=== PATIENT | male | born 1940 | race Caucasian/White ===

== ENCOUNTER 2016-07-06 15:32 | Inpatient (IN) | payer MEDICARE ==
[2016-07-06] VITALS (7 sets, daily range): BP systolic 55–151; BP diastolic 34–74; PULSE 101–121; RESP 19–27; O2SAT 96–100
[~2016-07-06] VITALS: Ht 180.3 cm; Wt 164.1 kg
[~2016-07-06 15:32] MED LIST: CHOL100043 PO; CITA20TA11 PO; CYAN1TAB42 PO; CYCL10TA9 PO; FLUT15.88 NS; FURO40TA4 PO; GABA-502 PO; HYDR-3825 PO; INSLIS SUBQ; INSU100V7 SUBQ; IRON 65 MG PO; LEVO200T24 PO; OMEG-38 PO; OMEP20CA11 PO; OXYB5TAB10 PO; PRAZ5CAP3 PO; SIMV40TA5 PO; SITA100T12 PO; SUNI50CA PO
[2016-07-06] MEDS ORDERED: 0.9% Sodium Chloride 1,000 ML IV ONE (15:37)
[2016-07-06] MEDS ORDERED: Pantoprazole Inj 80 MG, Pharmacy To Mix 1 EA in 0.9% Sodium Chloride 80 ML IV ONE ×2 (15:40)
[2016-07-06] MEDS ORDERED: Pantoprazole 4 mg/mL 10 mL Inj IVPUSH ONE (15:40)
[2016-07-06] MEDS ORDERED: Octreotide Inj 500 MCG in 0.9% Sodium Chloride 100 ML IV ONE (15:40)
--- NOTE | 2016-07-06 15:43 | ED.REPORT ---
HPI-GI Bleed Date of Service Jul 06, 2016 ED Provider: Jayesh Fisher MD The patient is a 76 year old male with history of gastric cancer with previous GI bleed, diabetes mellitus type II, morbid obesity, hypertension, heart failure , chronic kidney disease stage II, and ileocolonic anastomosis secondary to colectomy, who was brought to the emergency department by EMS for hematemesis that began suddenly prior to arrival. The patient is vomiting alberto red blood. He also has some epigastric abdominal pain and nausea. Medics report the patient was hypotensive with a blood pressure in the 90's systolic and tachycardic with a heart rate in the 130's. He was given a small amount of IVF en route. He had a similar episode last year. He was given 2 units of blood last week. He is not on any blood thinners. Nursing Notes Stated Complaint: ABDOMINAL PAIN Nursing Notes Reviewed: Yes Allergies: Coded Allergies: No Known Allergies (Verified Allergy, Unknown, 11/11/15) Scheduled Cholecalciferol (Vitamin D3) (Vitamin D3) 2,000 Unit Tablet 2,000 UNIT PO QAM Citalopram (Citalopram) 20 Mg Tablet 40 MG PO QAM Cyanocobalamin/Folic Acid (Vitamin E49-Ctzvk Acid Tablet) 1 Each Tablet 1 EACH PO QAM Cyclobenzaprine (Cyclobenzaprine) 10 Mg Tablet 10 MG PO BID Ferrous Sulfate (Ferrous Sulfate) 325 Mg Tablet.dr 325 MG PO BIDWM Fluticasone Propionate (Fluticasone Propionate) 50 Mcg/Actuation [place].susp 2 SPRAYS NS QAM Furosemide (Furosemide) 40 Mg Tablet 80 MG PO BIDWM Gabapentin (Gabapentin) 300 Mg Capsule 300 MG PO TID Insulin Glargine (Lantus U100 Insulin Vial) 100 Unit/Ml Vial 50 UNIT SUBQ HS Levothyroxine (Levoxyl) 200 Mcg Tablet 200 MCG PO QAM [place]-3/Dha/Epa/Fish Oil (Fish Oil 1,000 mg Softgel) 1 Each Capsule 1 EACH PO QAM Omeprazole (Omeprazole) 20 Mg Capsule.dr 20 MG PO BIDWM Oxybutynin Chloride (Oxybutynin Chloride) 5 Mg Tablet 5 MG PO BID Prazosin (Prazosin) 5 Mg Capsule 5 MG PO BID Simvastatin (Simvastatin) 40 Mg Tablet 40 MG PO HS Sitagliptin Phos (Januvia) 100 Mg Tablet 100 MG PO QAM Sunitinib Malate (Sutent) 50 Mg Capsule 50 MG PO DAILY HOLD (07/02/16) Scheduled PRN Hydrocodone-Acetaminophen 7.5-325 mg (Hydrocodone-Acetaminophen 7.5-325 mg) 1 Each Tablet 1 TABLET PO BID PRN PRN For Pain Insulin Human Lispro (HumaLOG U100 Insulin Vial) 100 Unit/Ml Unit 1-12 UNIT SUBQ TIDWM PRN PRN Hyperglycemia Check blood sugars before meals and at bedtime. Use correction factor only before meals. Blood Sugar Lispro Correction: <151, 0 units; 151-175, 1 unit; 176-200, 2 units; 201-225, 3 units; 226-250, 4 units; 251-275, 5 units; 276-300 , 6 units; 301-325, 7 units; 326-350, 8 units; 351-375, 9 units; 376-400, 10 units; >400, 12 units. General Time Seen by Provider: 15:40 Chief Complaint Chief Complaint: Vomiting bright red blood Bleeding Severity: Severe, Cups Hx Obtained From: Patient, EMS Arrived By: Ambulance Onset Occurred: 1 - 4 hours ago Symptom Duration: Since onset Progression Since Onset: Constant, Gradually worsening Location: : Epigastric Quality: Painful Severity: Current: Moderate Severity: Maximum: Moderate Recent Healthcare: No recent hospitalization Similar Sx Previous: Yes Past Medical History Past Medical History Notes: Oncologist: Dr. Gerber Past Medical History 1. Type 2 diabetes. Not requiring insulin at this time. No A1c available at this time. 2. Morbid obesity. 3. Obstructive sleep apnea, not using CPAP. 4. Hypertension. 5. History ileocolonic anastomosis secondary to colectomy in 2005 due to colon cancer. 6. CKD stage III 7. Diastolic heart failure 8. Previous GI bleed secondary to ulcerated mass lesion in the stomach and erosive esophagitis 9. Gastric cancer, GIST tumor Past Surgical History 1. Back surgery in 1990. 2. History ileocolonic anastomosis secondary to colectomy in 2005 due to colon cancer. Family History noncontributory Smoking History Never Smoker Social History Patient lives in [facility]. He used to work in [employer]. He is retired. He has no history of smoking or alcoholism. They have one grownup son. Alcohol Use: Denies alcohol use Drug Use: Denies drug use Other Social History: Good social support, , Local resident Occupation Retired price checker Ambulatory Status Independent Review of Systems GI: Reports: Abdominal pain, Hematemesis, Nausea, Vomiting Complete sys rev & neg: except as marked. Physical Exam Initial Vital Signs Vital Signs (First) Date Time Temp Pulse Resp B/P Pulse Ox O2 Delivery O2 Flow Rate FiO2 07/06/16 15:48 35.8 120 22 86/73 96 Room Air Initial VS: Reviewed Head / Eyes: Atraumatic, Normocephalic, PERRL ENT: Mucous membranes moist, Conjunctiva normal, No scleral icterus Neck: Supple, Non-tender, Full range of motion Lymphatic: No lymphadenopathy Extremities: Vascular intact, Neuro intact, No swelling, No tenderness Skin: Warm, Dry, No cyanosis Neurologic: Alert, Oriented, Nonfocal Psychiatric: Mood/affect normal, Behavior normal, Normal thought content General/Constitutional: Awake, Alert Distress / Hydration: Positive: Distress moderate Appearance / Presentation: Positive: Pale The patient is pale in appearance, sitting upright holding an emesis basin, vomiting bright red blood. The emesis basin conatains about 500-1000 mL of pure blood. Respiratory / Chest: Atraumatic, Breath sounds NL, Breath sounds = bilat, No respiratory distress, No rales, No rhonchi, No wheezing Cardiovascular: Regular rhythm, Heart sounds NL Heart Rate / Rhythm: Positive: Tachycardia Thready distal pulses Abdomen: Soft, No guarding, No rebound, BS normoactive, No distention, No hernia, No palpable mass, No pulsatile mass Tenderness/Guarding/Rebound: Positive: Tender epigastric Interpretation & Diagnostics Lab Results Interpretation Result Diagram: 07/06/16 1920 07/06/16 1540 Test 07/06/16 15:40 07/06/16 15:45 07/06/16 16:30 White Blood Count 8.1th/mm3 (3.8-10.1) Red Blood Count 2.86mil/mm3 (4.40-5.80) Mean Corpuscular Volume 100.0fL (81-100) Mean Corpuscular Hemoglobin 30.4pg (27.0-35.0) Mean Corpuscular Hemoglobin Concent 30.4% (32.0-37.0) Red Cell Distribution Width 16.5% (12.3-15.4) Platelet Count 345bil/L (150-400) Neutrophils (%) (Auto) 48.9% (40-74) Lymphocytes (%) (Auto) 30.0% (14-46) Monocytes (%) (Auto) 13.2% (4-12) Eosinophils (%) (Auto) 7.3% (0-5) Basophils (%) (Auto) 0.4% (0-3) Sodium Level 139mEq/L (134-144) Potassium Level 3.3mEq/L (3.5-5.2) Chloride Level 98mEq/L (97-108) Carbon Dioxide Level 27mmol/L (18-29) Blood Urea Nitrogen 19mg/dL (8-27) Creatinine 1.52mg/dL (0.76-1.27) Estimat Glomerular Filtration Rate 48mL/min (>59) Glucose Level 179mg/dL (60-99) Total Bilirubin 0.2mg/dL (0.0-1.2) Aspartate Amino Transf (AST/SGOT) 7U/L (0-50) Alanine Aminotransferase (ALT/SGPT) 5U/L (0-44) Alkaline Phosphatase 66U/L (25-160) Troponin T 0.036ug/L (0.0-0.011) Total Protein 6.1g/dL (6.4-8.4) Albumin 3.1g/dL (3.4-5.0) Hemoglobin 7.9g/dL (13.8-17.2) Hold [place] Top Tube Received (Received) Hold Purple Top Tube Received (Received) Hold Blue Top Tube Received (Received) ECG Interpretation ECG Interpretation: Atrial fibrillation with a rate of [address] segment changes No acute T wave abnormalities When compared to prior EKG taken on 07/08/2015 his heart rate has no increased. Time: 16:38 Interpreted by: ED physician X-Ray Chest Interpretation Chest Xray Interpretation: IMPRESSION: Moderate to large left-sided pleural effusion and associated atelectasis. Superimposed infection cannot be excluded. Dictated by: Jaquan Buchanan M.D. on 07/06/2016 at 15:07 Interpretation / Wet Read by: Interpret - Radiologist Re-Eval/Medical Decision Med Decision/Clinical Course The patient is a 76 year old male with history of gastric cancer with previous GI bleed, diabetes mellitus type II, morbid obesity, hypertension, heart failure , chronic kidney disease stage II, and ileocolonic anastomosis secondary to colectomy, who was brought to the emergency department by EMS for hematemesis that began suddenly prior to arrival. The patient is vomiting alberto red blood. He also has some epigastric abdominal pain and nausea. Medics report the patient was hypotensive with a blood pressure in the 90's systolic and tachycardic with a heart rate in the 130's. He was given a small amount of IVF en route. He had a similar episode last year. He was given 2 units of blood last week. He is not on any blood thinners. Upon arrival the patient is grasping an emesis basin. He is actively vomiting alberto blood and his emesis basin contains over 500 mL of alberto blood. He is pale in appearance, tachycardic in the 130s with a blood pressure in the 70s over 40s. He has 1 large bore IV staff placed. A second large-bore IV was obtained in the left antecubital fossa. I immediately initiated resuscitation with O- blood by pressure bag into both IVs. Additionally he was given warmed IV fluids. His blood pressure improved into the 80s to 90s systolic with a map in the low 60s. I continued resuscitative measures though he continued to vomit bright red blood despite receiving Zofran and Reglan. I immediately consulted GI and requested they evaluate the patient at the bedside. Dr. Archibald came to the bedside and evaluated the patient. Requested he be seen as well by general surgery for evaluation of possible operative intervention. Patient was seen and evaluated by Dr. Prather. Due to his multiple comorbidities and extensive tumor involvement he was not felt to be an operative candidate. Additionally we consulted Dr. Toledo who agreed to attempt to endovascular management of bleeding should we be unable to achieve this endoscopically. Here the emergency room the patient continued to have hematemesis and we administered a total of 6 units of blood and continued to administer blood products. Due to concern for possible coagulopathy I initiated the platelet and FFP transfusion as well. Laboratory studies were notable as below: Hct 28.6 no prior available, K 3.3, BUN 19, creatinine 1.5, trop .036, INR 1.12 EKG was obtained and interpreted by myself as documented above. Chest x-ray notable as above. Patient continued to be critically ill with ongoing hematemesis. I estimate that he had a total of approximately 1.5 L of alberto hematemesis between his emesis basis when he arrived and his ongoing hematemesis here. I was able to stabilize his blood pressure into the 90s over 40s and we continued ongoing aggressive replacement of blood products. He is taken to the endoscopy suite in critical condition for ongoing management from Dr. Archibald as well as Dr. Toledo. The patient's was updated as to the critical nature of his condition. He remained full code at this time. Source of Hx: Old records, EMS Re-Evaluation/Progress #1: Time of Eval: 15:55 Re-Evaluation/Progress Note: The patient's is now at bedside. Re-Evaluation/Progress #2: Time of Eval: 16:01 Re-Evaluation/Progress Note: Dr. Justice, rn renal is at bedside examining the patient. Re-Evaluation/Progress #3: Time of Eval: 16:17 Re-Evaluation/Progress Note: Rechecked the patient. Discussed plan for surgery with the patient and his . Will continue to update them. Re-Evaluation/Progress #4: Time of Eval: 16:54 Re-Evaluation/Progress Note: The patient is still actively vomiting bright red emesis. Re-Evaluation/Progress #5: Time of Eval: 16:59 Re-Evaluation/Progress Note: The patient feels like it is getting harder for him to breath. Re-Evaluation/Progress #6: Time of Eval: 17:07 Re-Evaluation/Progress Note: The anesthesiologist is at bedside. Discussed the plan with the patient. Consultation #1: Referral / Consult Name: Hansel Justice MD Call Returned at: 15:51 Rn Immunology: Will see patient, Agrees with eval, Agrees with plan Note: Spoke with the on-call rn renal. He would like the general surgeon involved. Consultation #2: Referral / Consult Name: Marcus Prather MD Consulted With: Surgeon Call Returned at: 16:09 Rn Immunology: Agrees with eval, Agrees with plan Note: The patient is not a surgical candidate but he talked to Dr. Lyn who will assist if needed. Consultation #3: Consulted With: Anesthesia Requested Call at: 16:18 Rn Immunology: Will see patient, Agrees with eval, Agrees with plan Consultation #4: Referral / Consult Name: Jazmyn Lyn MD Requested Call at: 16:18 Note: Dr. Prather spoke with the on-call radiologist. Dr. Lyn will assist if needed. Consultation #5: Referral / Consult Name: Hansel Justice MD Call Returned at: 16:50 Rn Immunology: Will see patient, Agrees with eval, Agrees with plan, Accepts admit Note: Spoke with Dr. Justice about the patient again. He is agreeable with plan. Consultation #6: Call Returned at: 17:00 Note: The community artist spoke with the OR team who will be coming down soon for the patient. Everything is a go. Dr. Justice will be taking the patient shortly. Consultation #7: Referral / Consult Name: Jordan Gallegos MD Consulted With: Hospitalist Call Returned at: 18:14 Rn Immunology: Will see patient, Agrees with eval, Agrees with plan, Accepts admit Counseled Regarding: Diagnosis, Lab results, Need for admission Discharge & Departure Impression: Primary Impression: GI bleeding GI bleed type/associated pathology: unspecified gastrointestinal hemorrhage type Qualified Code: K92.2 - Gastrointestinal hemorrhage, unspecified Additional Impressions: Gastric cancer Malignant neoplasm of stomach location: unspecified location Qualified Code: C16.9 - Malignant neoplasm of stomach, unspecified Hemorrhagic shock Hematemesis Nausea presence: unspecified Qualified Code: K92.0 - Hematemesis Blood loss anemia Tachycardia Hypotension Hypotension type: unspecified hypotension type Qualified Code: I95.9 - Hypotension, unspecified Disposition: ADMITTED TO HOSPITAL Discharge Condition All VS Reviewed: Yes Condition: Stable Referrals: Ke Mayen DO (PCP) Crit Care Except Billable Proc Time Spent: 105-134 minutes Services Performed: Patient management by me, Time spent at bedside, Reviewing test results, Reviewing imaging, Discussing patient care, Documentation in record Scribe Attestation Portions of this note were transcribed by Christie Castrejon. I, Dr. Fisher personally performed the history, physical exam and medical decision-making; I reviewed and confirmed the accuracy of the information in the transcribed note. Signed by: Brandy Osman, 07/06/2016 at 2009. copies to: Ke Mayen DO [place], Beck O MD Jul 06, 2016 15:43 Christie Castrejon Jul 06, 2016 15:52
[2016-07-06] MEDS ORDERED: fentaNYL-PF 50 mCg/mL 2 mL Inj IVPUSH ONE (15:45)
[2016-07-06] MEDS ORDERED: Ondansetron 2 mg/mL 2 mL Inj IVPUSH ONE (15:45)
[2016-07-06 15:46] LABS: BASOPHILS % (AUTO) 0.4 % (0-3); EOSINOPHILS % (AUTO) 7.3 % (0-5); MONOCYTES % (AUTO) 13.2 % (4-12); Mean Corpuscular Hemoglobin 30.4 pg (27.0-35.0); NEUTROPHILS % (AUTO) 48.9 % (40-74); Platelet Count 345 bil/L (150-400)
[2016-07-06 16:12] LABS: Magnesium 1.9 mg/dL (1.6-2.6)
--- NOTE | 2016-07-06 16:17 | DRSVH ---
PROCEDURE: X-RAY CHEST ONE VIEW, PORTABLE ([id number]) INDICATIONS: SHORTNESS OF BREATH TECHNIQUE: One view of the chest was acquired. COMPARISON: [facility], CR, XR CHEST 1VW (PORTABLE), 07/08/2015, 21:05. FINDINGS: Surgical changes and devices: None. Lungs and pleura: There is a large left basilar opacity that obscures the diaphragm and left heart amna rder, which is new since the prior study from 07/08/15. Aeration of the right lung is within normal l imits and unchanged. There is no pneumothorax. Mediastinum: Mediastinal contours appear normal. Heart size is obscured by the left basilar opacity . Bones and chest wall: No suspicious bony lesions. Overlying soft tissues appear unremarkable. IMPRESSION: Moderate to large left-sided pleural effusion and associated atelectasis. Superimposed i nfection cannot be excluded. Dictated by: Jaquan Buchanan M.D. on 07/06/2016 at 15:07 Approved by: Jaquan Buchanan M.D. on 07/06/2016 at 15:16
[2016-07-06 16:21] LABS: TROPONIN T 0.036 ug/L (0.0-0.011)
[2016-07-06] MEDS ORDERED: MetoCLOpramide 5 mg/mL 2 mL Inj IVPUSH PRN (17:00)
[2016-07-06] MEDS ORDERED: CHOL200025 PO (17:30)
[2016-07-06] MEDS ORDERED: FERR325T6 PO (17:38)
--- NOTE | 2016-07-06 17:44 | PCM.CONSUR ---
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 The patient started vomiting alberto red blood today and Medics report the patient was hypotensive with a blood pressure in the 90's systolic and tachycardic with a heart rate in the 130's. He was given a small amount of IVF en route. He had a similar episode last year. He was given 2 units or blood last week. He is not on any blood thinners. Previously, regarding his GIST he would have required a major operation including gastrectomy and lower distal esophagectomy and the patient was not felt to be medically able to tolerate that operation after two separate surgical consultations. He was treated with Gleevec and then had disease progression and was treated with palliative radiation to the stomach in the summer of 2015. Gleevec was given for about one and half years through October 2015. Managed initially with Gleevec, then, due to progression of disease, he was switched to Sutent. Additionally he has had a liver lesion that had increased to 2.2 from previously 1.6 cm, then further increased in mid March to 2.9 cm without any new lesions. Therefore, at his visit on April 16, 2016, his dose of Sutent was increased to 50 mg on a four weeks on and two weeks off cycle. He was supposed to start his next cycle of Sutent on June 30 but has been delayed due to declining hemoglobin over the last month, which was concerning for a GI bleed. His hemoglobin has usually been running around 11.5-12, and most recently dropped to 9.3 on June 11 and 7.9 on June 25, 2016. Other pmh of several comorbidities, including morbid obesity, diabetes, hypertension, heart failure, chronic renal insufficiency, and ileocolonic anastomosis secondary to colectomy, and other cardiovascular issues. The patient reports epigastric pain, vomiting bright red blood, dizziness. Denies chest pain, shortness of breath, syncope, diarrhea, constipation. Patient states he was everything done regarding CPR, Intubation, blood transfusions, and other invasive measures including EGD and surgery. Reason for Consultation Vomiting bright red blood. Allergy Allergies: Coded Allergies: No Known Allergies (Verified Allergy, Unknown, 11/11/15) Medications Hypertension Medication: Yes Home Meds Incl Beta Blockers: No Cholecalciferol (Vitamin D3) (Vitamin D3) 2,000 Unit Tablet 2,000 UNIT PO QAM ( Reported) Last Taken: 2,000 UNTIS on 07/06/16899 Citalopram (Citalopram) 20 Mg Tablet 40 MG PO QAM (Reported) Last Taken: 40 MG on 07/06/16899 Cyanocobalamin/Folic Acid (Vitamin B12- Folic Acid Tablet) 1 Each Tablet 1 EACH PO QAM (Reported) Last Taken: 1 TABLET on 07/06/16899 Cyclobenzaprine (Cyclobenzaprine) 10 Mg Tablet 10 MG PO BID (Reported) Last Taken: 10 MG on 07/06/16899 Ferrous Sulfate (Ferrous Sulfate) 325 Mg Tablet.dr 325 MG PO BIDWM (Reported) Last Taken: 325 MG on 07/06/16899 Fluticasone Propionate (Fluticasone Propionate) 50 Mcg/Actuation [place].susp 2 SPRAYS NS QAM (Reported) Last Taken: 1 SPRAY on 07/06/16899 Furosemide (Furosemide) 40 Mg Tablet 80 MG PO BIDWM (Reported) Last Taken: 80 MG on 07/06/16899 Gabapentin (Gabapentin) 300 Mg Capsule 300 MG PO TID (Reported) Last Taken: 300 MG on 07/06/16899 Hydrocodone-Acetaminophen 7.5-325 mg ( Hydrocodone-Acetaminophen 7.5-325 mg) 1 Each Tablet 1 TABLET PO BID PRN PRN For Pain (Reported) Last Taken: 1 TABLET on Unknown Date & Time Insulin Glargine (Lantus U100 Insulin Vial) 100 Unit/Ml Vial 50 UNIT SUBQ HS (Reported) Last Taken: 50 UNITS on 07/05/16 2100 Insulin Human Lispro (HumaLOG U100 Insulin Vial) 100 Unit/Ml Unit 1-12 UNIT SUBQ TIDWM PRN PRN Hyperglycemia ( Reported) Check blood sugars before meals and at bedtime. Use correction factor only before meals. Blood Sugar Lispro Correction: <151, 0 units; 151-175, 1 unit; 176-200, 2 units; 201-225, 3 units; 226-250, 4 units; 251-275, 5 units; 276-300 , 6 units; 301-325, 7 units; 326-350, 8 units; 351-375, 9 units; 376-400, 10 units; >400, 12 units. Last Taken: Unknown Dose on 07/06/16 Levothyroxine (Levoxyl) 200 Mcg Tablet 200 MCG PO QAM (Reported) Last Taken: 200 MCG on 07/06/16 07 [place]-3/Dha/Epa/Fish Oil (Fish Oil 1, 000 mg Softgel) 1 Each Capsule 1 EACH PO QAM (Reported) Last Taken: 1,000 MG on 07/06/16 09 Omeprazole (Omeprazole) 20 Mg Capsule.dr 20 MG PO BIDWM (Reported) Last Taken: 20 MG on 07/06/16 07 Oxybutynin Chloride (Oxybutynin Chloride) 5 Mg Tablet 5 MG PO BID (Reported) Last Taken: 5 MG on 07/06/16 09 Prazosin (Prazosin) 5 Mg Capsule 5 MG PO BID (Reported) Last Taken: 5 MG on 07/06/16 09 Simvastatin (Simvastatin) 40 Mg Tablet 40 MG PO HS (Reported) Last Taken: 40 MG on 07/05/16 2100 Sitagliptin Phos (Januvia) 100 Mg Tablet 100 MG PO QAM (Reported) Last Taken: 100 MG on 07/06/16 0900 Sunitinib Malate (Sutent) 50 Mg Capsule 50 MG PO DAILY (Reported) HOLD (07/02/16) Last Taken: 50 MG on 07/01/16 Discontinued Medications ([Iron 65 Mg]) 65 MG PO BID (Reported) HOLD (07/02/16) Cholecalciferol (Vitamin D3) (Vitamin D) 1,000 Unit Tablet 3,000 UNIT PO DAILY ( Reported) Past Surgical History Surgeries: Yes (hemicolectomy. ) Patient/Family Past Surgical: Positive for:: Blood Transfusions, Denies:: Anesthesia Reactions, Blood Transfuse Reaction, Malignant Hyperthermia Social History Hx Alcohol Use: No Hx Substance Use: No Hx Tobacco Use: No PMH HEENT History History of ENT Problems?: No HEENT History: Positive for:: Sinus Problem Denies:: Abnormal Airway Cataracts Difficult Intubation Dysphagia Hearing Problem Cardiovascular History History of Heart Problems?: Yes Cardiovascular History: Positive for:: Edema Hypertension Denies:: AICD Cardiac Surgery Chest Pain Congestive Heart Failure Heart Murmur Irregular Heartbeat Pacemaker Rheumatic Fever Thrombophlebitis Valvular Heart Disease Respiratory History of Respiratory Problem: Yes Respiratory History: Positive for:: Cough (productive) Dyspnea (with exertion ) Pneumonia (40 years ago) Denies:: Asthma COPD Chest Surgery Emphysema Hemoptysis Tuberculosis Neurological History Hx Neurologic Problems?: Yes Neurological History: Positive for:: Headaches Denies:: Alzheimer's Disease CVA Dementia Dizziness Parkinson's Disease Seizures Gastrointestinal History HX of GI Problems?: Yes Gastrointestinal History: Positive for:: Gastrointestinal Bleeding Heartburn Hiatal Hernia Rectal Bleeding Denies:: Cirrhosis Diverticulitis Gastroesphageal Reflux Hepatitis Genitourinary History Hx of Gu Problems?: Yes Genitourinary History: Positive for: Urinary Tract Infection Denies: HX of Hemodialysis Kidney Stones Female/Male History Reproductive History Male: Denies: Prostate Problems Scrotal Mass Musculoskeletal History Hx Musculoskeletal Problems?: Yes Musculoskeletal History: Positive for:: Back Injury (2 lamanectomy 30yrs ) Denies:: Joint Replacement Musculoskeletal Trauma Psycho Social History Hx of Psycho/Social Problems?: No Psycho Social History: Denies:: Anxiety Bipolar Disorder Hx Depression Suicide Attempt Other History Hx Any Other Health Problems?: Yes Other History: Positive for:: Cancer (gastric cancer of some sort ) Hospitalization (gi bleed, gastric cancer) Thyroid Disease Denies:: Endocrine Disease Diabetes: Yes Social History Hx Alcohol Use: NoHx Substance Use: NoHx Tobacco Use: No Smoking Status: Never Smoker Objective Exam Vital Signs & I/O Vital Sign- Last 8 Hours Date Time Temp Pulse Resp B/P Pulse Ox O2 Delivery O2 Flow Rate FiO2 07/06/16 16:08 35.6 101 25 73/45 96 Room Air 07/06/16 15:48 35.8 120 22 86/73 96 Room Air Lab & Micro Results Laboratory Tests Test 07/06/16 15:40 07/06/16 15:45 07/06/16 16:30 White Blood Count 8.1th/mm3 (3.8-10.1) Red Blood Count 2.86mil/mm3 (4.40-5.80) Hemoglobin 8.7g/dL (13.8-17.2) 7.9g/dL (13.8-17.2) Hematocrit 28.6% (41.0-50.0) 26.9% (41.0-50.0) Mean Corpuscular Volume 100.0fL (81-100) Mean Corpuscular Hemoglobin 30.4pg (27.0-35.0) Mean Corpuscular Hemoglobin Concent 30.4% (32.0-37.0) Red Cell Distribution Width 16.5% (12.3-15.4) Platelet Count 345bil/L (150-400) Neutrophils (%) (Auto) 48.9% (40-74) Lymphocytes (%) (Auto) 30.0% (14-46) Monocytes (%) (Auto) 13.2% (4-12) Eosinophils (%) (Auto) 7.3% (0-5) Basophils (%) (Auto) 0.4% (0-3) Prothrombin Time 10.7sec (8.1-12.5) Prothromb Time International Ratio 1.00ratio Sodium Level 139mEq/L (134-144) Potassium Level 3.3mEq/L (3.5-5.2) Chloride Level 98mEq/L (97-108) Carbon Dioxide Level 27mmol/L (18-29) Blood Urea Nitrogen 19mg/dL (8-27) Creatinine 1.52mg/dL (0.76-1.27) Estimat Glomerular Filtration Rate 48mL/min (>59) Glucose Level 179mg/dL (60-99) Calcium Level 9.0mg/dL (8.5-10.1) Magnesium Level 1.9mg/dL (1.6-2.6) Total Bilirubin 0.2mg/dL (0.0-1.2) Aspartate Amino Transf (AST/SGOT) 7U/L (0-50) Alanine Aminotransferase (ALT/SGPT) 5U/L (0-44) Alkaline Phosphatase 66U/L (25-160) Troponin T 0.036ug/L (0.0-0.011) Total Protein 6.1g/dL (6.4-8.4) Albumin 3.1g/dL (3.4-5.0) Hold Blue Top Tube Received (Received) Received (Received) Hold [place] Top Tube Received (Received) Hold Purple Top Tube Received (Received) Result Diagram: 07/06/16 1548 07/06/16 1540 Review of Systems: Constitutional: Negative, except as otherwise mentioned in the history above. Ophthalmologic: Negative, except as otherwise mentioned in the history above. Cardiovascular: Negative, except as otherwise mentioned in the history above. Respiratory: Negative, except as otherwise mentioned in the history above. Gastrointestinal: Negative, except as otherwise mentioned in the history above. Genitourinary: Negative, except as otherwise mentioned in the history above. Musculoskeletal: Negative, except as otherwise mentioned in the history above. Neurological: Negative, except as otherwise mentioned in the history above. Psychiatric: Negative, except as otherwise mentioned in the history above. Hematologic/Lymphatic: Negative, except as otherwise mentioned in the history above. Allergic/Immunologic: Negative, except as otherwise mentioned in the history above. Additional Information A comprehensive review of systems was conducted with the patient and found to be negative except as above in the History of Present Illness. H&P Surgical Exam Exam Additional Information General: Pt sitting in bed. Obese. Well-developed. Appropriately interactive, slow to respond and distracted. HEENT: Normocephalic, atraumatic. External ears without defect. Pupils equal, round, minimally responsive, not pinpoint or dilated. Oropharynx free of erythema with moist mucosa. Normal dentition. Cardiovascular: Mildly tachycardic rate with normal rhythm with no murmurs, rubs , or gallops appreciated Pulmonary: Clear to auscultation bilaterally with no crackles, wheezes, or rhonchi. Normal respiratory effort with no use of accessory muscles. Abdomen: Bowel tones present. Soft, tender to palpation in the epigastric area, nondistended. No hepatosplenomegaly or masses appreciated. Extremities: No clubbing, cyanosis, edema, or lymphadenopathy appreciated. Skin: Normal temperature, turgor, and texture; no rash, ulcers, or subcutaneous nodules appreciated. Neurological: Cranial nerves grossly intact. Normal muscle strength, tone, and bulk. Reflexes, coordination, and sensory function within normal limits. No known gait impairment. Psychiatric: Normal mood and affect. Alert and oriented to person, place, and time. Assessment & Plan Assessment Upper GI bleed, most likely 2nd to aggressive GIST with acute blood loss anemia. Plan: Upper GI bleed, most likely 2nd to aggressive GIST with acute blood loss anemia. Upper endoscopy showed large blood clot from mid esophageus to gastric pylorus with free flowing bright red blood under the blood clot. Dr. Justice could not visualize source of bleeding. Dr. Lyn with IR will attempt angiography embolization. Dr. Justice will plan to try EGD again if IR attempts are unsuccessful. Spoke with and she does not wish surgery at this time. She understands that surgery has not been and option in the past and does not wish to subject her to further surgeries. She has decided that if patient were to have a cardiac arrest due to blood loss and transfusions could not keep up with the rate of blood loss, that we should NOT attempt resuscitation. This is a change from the previous plan and that compressions, epi and shock would not help the underlying problem of blood loss. Continue supportive care with IV fluids and Blood transfusions. Place NG tube. ICU placement. Surgery will remain available and reassess IF EGD and IR are unsuccessful at controlling upper GI bleed. Medicine team to follow. Dr. Gerber following patient as outpatient. Resuscitation Status: CPR: Attempt Resuscitation Attending Statement: I personally interviewed and examined the pt, and I agree with Dr. Li's assessment and plan. EGD first, then IR per Dr. Carter. AUGUSTUS LI DO Jul 06, 2016 17:02 Marcus Prather MD Jul 08, 2016 08:16
[2016-07-06 18:12] LABS: INR 1.12 ratio
[2016-07-06 18:20] LABS: Magnesium 1.6 mg/dL (1.6-2.6)
[2016-07-06] MEDS ORDERED: EPINEPHrine 0.1 mg/mL 10 mL Syringe ONE (18:37)
[2016-07-06] MEDS ORDERED: Atropine 1 mg/10 mL (Code) Syringe ONE (18:37)
[2016-07-06] MEDS ORDERED: Heparin 5,000 Units/500 mL NS Premix IV ONE (18:37)
--- NOTE | 2016-07-06 18:40 | PCM.HPANE ---
Patient Data Date of Service: Jul 06, 2016 Surgeon Admitting Provider: Attending Provider:Marcus Prather MD Primary Care Physician:Ke Mayen DO Other Provider: Reason for Visit Abdominal Pain Ht/WT & BMI Height (Feet): 6 Height (Inches): 2 Weight (Kilograms): 145.45 Body Mass Index Allergies Coded Allergies: No Known Allergies (Verified Allergy, Unknown, 11/11/15) Past Anesthesia History Anesthesia History: Denies:: Abnormal Airway, Anesthesia Reactions, Difficult Intubation, Fam Anesthesia Reaction, Fam Malignant Hypertherm, Malignant Hyperthermia Diabetes History Hx Diabetes?: Yes MRSA MRSA: No Medications Reported Medications Ferrous Sulfate 325 Mg Tablet.dr325 Mg PO BIDWM 30 Days Ref 0 07/06/16 Cholecalciferol (Vitamin D3) (Vitamin D3)2,000 Unit Tablet2,000 Unit PO QAM 07/06/16 Sunitinib Malate (Sutent)50 Mg Rchggnp37 Mg PO DAILY HOLD (07/02/16) 06/11/16 Gabapentin 300 Mg Vheoyqs796 Mg PO TID Ref 0 12/29/15 Hydrocodone-Acetaminophen 7.5-325 mg 1 Each Tablet1 Tablet PO BID PRN For Pain Ref 0 11/03/15 Insulin Glargine (Lantus U100 Insulin Vial)100 Unit/Ml Vial50 Unit SUBQ HS Ref 0 11/03/15 Sitagliptin Phos (Januvia)100 Mg Uizbqc379 Mg PO QAM Ref 0 11/03/15 [place]-3/Dha/Epa/Fish Oil (Fish Oil 1,000 mg Softgel)1 Each Capsule1 Each PO QAM 11/03/15 Cyanocobalamin/Folic Acid (Vitamin V75-Ydkwr Acid Tablet)1 Each Tablet1 Each PO QAM 11/03/15 Furosemide 40 Mg Lpdsuf94 Mg PO BIDWM 11/03/15 Insulin Human Lispro (HumaLOG U100 Insulin Vial)100 Unit/Ml Unit1-12 Unit SUBQ TIDWM PRN Hyperglycemia #1 VIAL Ref 0 Check blood sugars before meals and at bedtime. Use correction factor only before meals. Blood Sugar Lispro Correction: <151, 0 units; 151-175, 1 unit; 176-200, 2 units; 201-225, 3 units; 226-250, 4 units; 251-275, 5 units; 276-300, 6 units; 301-325, 7 units; 326-350, 8 units; 351-375, 9 units; 376-400, 10 units; >400, 12 units. 07/09/15 Fluticasone Propionate 50 Mcg/Actuation [place].susp2 Sprays NS QAM 07/09/15 Omeprazole 20 Mg Capsule.dr20 Mg PO BIDWM Ref 0 06/11/15 Citalopram 20 Mg Nhkwzp36 Mg PO QAM Ref 0 05/21/14 Cyclobenzaprine 10 Mg Vivfry21 Mg PO BID Ref 0 05/21/14 Oxybutynin Chloride 5 Mg Tablet5 Mg PO BID Ref 0 05/21/14 Levothyroxine (Levoxyl)200 Mcg Svyadw455 Mcg PO QAM Ref 0 05/21/14 Simvastatin 40 Mg Xggthg07 Mg PO HS 30 Days Ref 0 04/12/14 Prazosin 5 Mg Capsule5 Mg PO BID 30 Days 04/12/14 Discontinued Reported Medications [Iron 65 Mg] No Conflict Check65 Mg PO BID HOLD (07/02/16) 12/29/15 Cholecalciferol (Vitamin D3) (Vitamin D)1,000 Unit Tablet3,000 Unit PO DAILY Ref 0 11/03/15 History History of ENT Problems?: No HEENT History: Positive for:: Sinus Problem Denies:: Abnormal Airway Cataracts Difficult Intubation Dysphagia Hearing Problem Hx of Heart Problems?: Yes Cardiovascular History: Positive for:: Edema Hypertension Denies:: AICD Cardiac Surgery Chest Pain Congestive Heart Failure Heart Murmur Irregular Heartbeat Pacemaker Rheumatic Fever Thrombophlebitis Valvular Heart Disease Hx of Respiratory Problem?: Yes Respiratory History: Positive for:: Cough (productive) Dyspnea (with exertion ) Pneumonia (40 years ago) Denies:: Asthma COPD Chest Surgery Emphysema Hemoptysis Tuberculosis Hx Neurologic Problems?: Yes Neurological History: Positive for:: Headaches Denies:: Alzheimer's Disease CVA Dementia Dizziness Parkinson's Disease Seizures Hx of GI Problems?: Yes Gastrointestinal History: Positive for:: Gastrointestinal Bleeding (massive transfusion started. Known gastric tumor, non-resectable) Heartburn Hiatal Hernia Rectal Bleeding Denies:: Cirrhosis Diverticulitis Gastroesphageal Reflux Hepatitis Hx of Problems?: Yes Genitourinary History: Positive for:: Urinary Tract Infection Denies:: HX of Hemodialysis Kidney Stones HX of Peritoneal Dialysis: No Male Hx: Denies:: Prostate Problems Scrotal Mass Testicular Surgery Hx Musculoskeletal Problems?: Yes Musculoskeletal History: Positive for:: Back Injury (2 lamanectomy 30yrs ) Denies:: Joint Replacement Musculoskeletal Trauma Hx of Psycho/Social Problems?: No Psycho Social History: Denies:: Anxiety Bipolar Disorder Hx Depression Suicide Attempt Hx Surgeries?: No Hx Any Other Health Problems?: Yes Other History: Positive for:: Cancer (gastric cancer of some sort ) Hospitalization (gi bleed, gastric cancer) Thyroid Disease Denies:: Endocrine Disease History Blood Transfusions: Positive for:: Blood Transfusions Denies:: Blood Transfuse Reaction Hx Diabetes: Yes Hx Alcohol Use: NoHx Substance Use: No Smoking Status: Never Smoker Have You Smoked inLast 12 mo: No Stop/Bang ROSA Risk Assessment: High Risk, =/>3 Yes ROSA Category 2: Yes Risk Assessment Category Category 1A: Patient has history of documented sleep apnea, and HAS NOT received any narcotic, sedative or anesthesia administration during this stay. Category 1B: Patient has history of documented sleep apnea, and HAS received any narcotic , sedative or anesthesia administration during this stay Category 2: Patient has SUSPECTED Obstructive Sleep Apnea, and HAS received any narcotic , sedative or anesthesia administration during this stay. Category 3: Patient has SUSPECTED Obstructive Sleep Apnea and HAS NOT received narcotic, sedative or anesthesia administration during this stay. Category 4: Outpatient in Procedural Areas with known sleep apnea or who screen positive for High Risk via the STOP/BANG questionnaire. Exam Exam Vital Signs Vital Signs Date Time Temp Pulse Resp B/P Pulse Ox O2 Delivery O2 Flow Rate FiO2 07/06/16 16:08 35.6 101 25 73/45 96 Room Air 07/06/16 15:48 35.8 120 22 86/73 96 Room Air General Appearance: Alert, Oriented X3, Moderate Distress HEENT/AIRWAY: MP 3, Mouth Opening (full of blood) Additional Information tachy Meds/Labs/Diagnostics Admission Meds Current Medications Pantoprazole 80 mg 80 mg STAT ONCE IVPUSH Last administered on 07/06/16 15:57 ; Start 07/06/16 at 15:40; Stop 07/06/16 at 15:41; Status DC Pantoprazole 80 mg/Miscellaneous 1 ea/Sodium Chloride 100 ml @ 10 mls/hr ONCE ONCE IV Last administered on 07/06/16 16:50; Start 07/06/16 at 15:40; Stop 03/13 at 01:39 Sodium Chloride (Normal Saline) 1,000 ml @ 0 mls/hr Q0M ONCE IV Last administered on 07/06/16 15:56; Start 07/06/16 at 15:37; Stop 07/06/16 at 15:40 ; Status DC Ondansetron HCl (Zofran Inj) 8 mg ONCE ONCE IVPUSH Last administered on 16:24; Start 07/06/16 at 15:45; Stop 07/06/16 at 15:46; Status DC Labs Test 07/06/16 15:40 07/06/16 15:45 07/06/16 16:30 White Blood Count 8.1th/mm3 (3.8-10.1) Red Blood Count 2.86mil/mm3 (4.40-5.80) Mean Corpuscular Volume 100.0fL (81-100) Mean Corpuscular Hemoglobin 30.4pg (27.0-35.0) Mean Corpuscular Hemoglobin Concent 30.4% (32.0-37.0) Red Cell Distribution Width 16.5% (12.3-15.4) Platelet Count 345bil/L (150-400) Neutrophils (%) (Auto) 48.9% (40-74) Lymphocytes (%) (Auto) 30.0% (14-46) Monocytes (%) (Auto) 13.2% (4-12) Eosinophils (%) (Auto) 7.3% (0-5) Basophils (%) (Auto) 0.4% (0-3) Prothrombin Time 10.7sec (8.1-12.5) Prothromb Time International Ratio 1.00ratio Sodium Level 139mEq/L (134-144) Potassium Level 3.3mEq/L (3.5-5.2) Chloride Level 98mEq/L (97-108) Carbon Dioxide Level 27mmol/L (18-29) Blood Urea Nitrogen 19mg/dL (8-27) Creatinine 1.52mg/dL (0.76-1.27) Estimat Glomerular Filtration Rate 48mL/min (>59) Glucose Level 179mg/dL (60-99) Calcium Level 9.0mg/dL (8.5-10.1) Magnesium Level 1.9mg/dL (1.6-2.6) Total Bilirubin 0.2mg/dL (0.0-1.2) Aspartate Amino Transf (AST/SGOT) 7U/L (0-50) Alanine Aminotransferase (ALT/SGPT) 5U/L (0-44) Alkaline Phosphatase 66U/L (25-160) Troponin T 0.036ug/L (0.0-0.011) Total Protein 6.1g/dL (6.4-8.4) Albumin 3.1g/dL (3.4-5.0) Hemoglobin 7.9g/dL (13.8-17.2) Hematocrit 26.9% (41.0-50.0) Hold [place] Top Tube Received (Received) Hold Purple Top Tube Received (Received) Hold Blue Top Tube Received (Received) Plan Impression Patient chart reviewed, patient interviewed and anesthestic plan with risks, benefits, and alternatives discussed, and informed consent obtained. NPO Status: > 8 hrs ASA Physical Status: ASA4 Plus Emergency Anesthetic Plan: GA Bene/Risks/Altern/Consents: Yes HP Complete Prior to Induction: Yes Other Emergent to OR, brief consent with patient/ Lion Burkett MD Jul 06, 2016 17:20
[2016-07-06] MEDS ORDERED: Polyethylene Glycol (PEG) 17 Gm Powder PO PRN (18:50)
[2016-07-06] MEDS ORDERED: Erythromycin Inj 250 MG in 0.9% Sodium Chloride 100 ML IV ONE (18:50)
[2016-07-06] MEDS ORDERED: Ondansetron 2 mg/mL 2 mL Inj IVPUSH PRN (18:50)
[2016-07-06] MEDS ORDERED: Alum-Mag Hydrox-Simeth 30 mL Suspension PO PRN (18:50)
[2016-07-06] MEDS ORDERED: Senna-Docusate 8.6-50 mg Tablet PO PRN (18:50)
--- NOTE | 2016-07-06 19:35 | PCM.HPMED ---
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 The patient is vomiting alberto red blood. He also has some epigastric abdominal pain and nausea associated with this episode. Family called 911. He had a similar episode last year. He was given 2 units of blood last week due to chronic anemia felt to be related to chronic bleeding from his cancer. He is not on any blood thinners. Oncology also discussed Iron transfusions on the next visit Medics report the patient was hypotensive with a blood pressure in the 90's systolic and tachycardic with a heart rate in the 130's. He was given a small amount of IVF en route. Patient was evaluated by my collegue Dr Gallegos, Dr Justice (GI) and Dr Prather ( Surgery). EGD was done emergently but due to persistent bleeding it was difficult to locate the site of bleeding. They discussed embolization with Interventional radiation and patient was taken for the procedure Dr Gallegos discussed code status with and patient was made DNR Review of Systems: unable to obtain, patient sedated Allergies Coded Allergies: No Known Allergies (Verified Allergy, Unknown, 11/11/15) Home Medications Jose Elias Cabral [id number] 1940 06/24/2016 01:30 PM 04/02 citalopram 40 mg tablet take 1 tablet by oral route every day cyclobenzaprine 10 mg tablet take 1 tablet by oral route 2 times every day Fish Oil 1,000 mg capsule Flonase Allergy Relief 50 mcg/actuation nasal spray,suspension inhale 2 spray by intranasal route every day in each nostril gabapentin 300 mg capsule take 1 capsule by ORAL route 3 times every day Humalog 100 unit/mL subcutaneous solution inject by subcutaneous route before each meal per sliding scale hydrocodone 7.5 mg-acetaminophen 325 mg tablet take 1 tablet by oral route twice daily as needed for pain hydrocodone 7.5 mg-acetaminophen 325 mg tablet take 1 tablet by oral route twice daily as needed for pain hydrocodone 7.5 mg-acetaminophen 325 mg tablet take 1 tablet by oral route twice daily as needed for pain iron 325 mg (65 mg iron) tablet take 1 tablet by oral route 2 times every day Januvia 100 mg tablet take 1 tablet by oral route every day Lantus 100 unit/mL subcutaneous solution Inject by subcutaneous route 64 units at night. Increase by one unit nightly until morning blood sugars are less than 150. Lasix 40 mg tablet take 1.5 tablet by oral route 2 times every day Levoxyl 200 mcg tablet take 1 tablet by oral route every day on an empty stomach 30 minutes to 1 hour before breakfast omeprazole 20 mg tablet,delayed release take 1 by oral route 2 times every day oxybutynin chloride 5 mg tablet take 1 tablet (5MG) by ORAL route 2 times every day prazosin 5 mg capsule take 1 capsule (5MG) by ORAL route 2 times every day simvastatin 40 mg tablet take 1 tablet by oral route every day in the evening Sutent 50 mg capsule take 1 capsule by oral route every day triamcinolone acetonide 0.1 % topical cream apply by topical route 2 times every day a thin layer to the affected area(s) vitamin B12 1,000 mcg-folic acid 400 mcg sublingual tablet Vitamin D3 2,000 unit tablet PMH 1. Type 2 diabetes.insulin requiring 2. Morbid obesity. 3. Obstructive sleep apnea, not using CPAP. 4. Hypertension. 5. History ileocolonic anastomosis secondary to colectomy in 2005 due to colon cancer. 6. 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 An aggressive GIST of the stomach that was not resectable due to needing a major operation that he was not medically able to tolerate and was being managed initially with Gleevec. Then, due to progression of disease, he was switched to Sutent 7. Chronic kidney disease Stage 3 8. Chronic anemiadue to persistent GI bleeding 9. Decubitus ulcer 10. Hypothyroidism . Surgical History 1. Back surgery in 1990. 2. History ileocolonic anastomosis secondary to colectomy in 2005 due to colon cancer. Family History No clustering of malignancies in the family Social History Hx Alcohol Use: No Hx Substance Use: No Hx Tobacco Use: No Smoking Status: Never Smoker Exam Vital Signs Vital Sign - Last Date Time Temp Pulse Resp B/P Pulse Ox O2 Delivery O2 Flow Rate FiO2 07/06/16 18:09 121 27 55/34 97 Nasal Cannula 2 07/06/16 16:08 35.6 Exam General: Sedated on the ventilator. ET tube in place Eyes: PERRLA, Scleral Anicteric. Pale conjunctivae Mouth: Mouth Normal, Mucous Membranes Moist/[place]. Persistent blood oozing from ET tube site and nostrils Neck: Supple, no Thyromegaly, trachea central. Chest & Lungs: decreased breathe sounds at bases Cardiovascular: Normal S1, Normal S2, No Murmurs/Rubs/Gallops, Regular Rate/ Rhythm, (No JVD, no peripheral edema) Pulses: Radial (present and equal), Dorsalis Pedi (present and equal) Abdomen: Soft, Non-tender, very distended, Normoactive bowel tones. Musculoskeletal: Unremarkable. Normal range of motion, no swollen or erythematous joints Extremities: No edema, no cyanosis, no clubbing. Skin: No rashes. Warm and dry, no erythematous areas. Pale skin Neurological: sedated on the ventilator Lymphatic: Lymph nodes Cervical and Axillary not palpable. Lab and Diagnostics Labs Laboratory Tests Test 07/06/16 15:40 07/06/16 15:45 07/06/16 16:30 07/06/16 17:45 White Blood Count 8.1th/mm3 (3.8-10.1) Red Blood Count 2.86mil/mm3 (4.40-5.80) Hemoglobin 8.7g/dL (13.8-17.2) 7.9g/dL (13.8-17.2) Hematocrit 28.6% (41.0-50.0) 26.9% (41.0-50.0) 36.3% (41.0-50.0) Mean Corpuscular Volume 100.0fL (81-100) Mean Corpuscular Hemoglobin 30.4pg (27.0-35.0) Mean Corpuscular Hemoglobin Concent 30.4% (32.0-37.0) Red Cell Distribution Width 16.5% (12.3-15.4) Platelet Count 345bil/L (150-400) Neutrophils (%) (Auto) 48.9% (40-74) Lymphocytes (%) (Auto) 30.0% (14-46) Monocytes (%) (Auto) 13.2% (4-12) Eosinophils (%) (Auto) 7.3% (0-5) Basophils (%) (Auto) 0.4% (0-3) Prothrombin Time 10.7sec (8.1-12.5) 12.0sec (8.1-12.5) Prothromb Time International Ratio 1.00ratio 1.12ratio Sodium Level 139mEq/L (134-144) Potassium Level 3.3mEq/L (3.5-5.2) Chloride Level 98mEq/L (97-108) Carbon Dioxide Level 27mmol/L (18-29) Blood Urea Nitrogen 19mg/dL (8-27) Creatinine 1.52mg/dL (0.76-1.27) Estimat Glomerular Filtration Rate 48mL/min (>59) Glucose Level 179mg/dL (60-99) Calcium Level 9.0mg/dL (8.5-10.1) 7.6mg/dL (8.5-10.1) Magnesium Level 1.9mg/dL (1.6-2.6) 1.6mg/dL (1.6-2.6) Total Bilirubin 0.2mg/dL (0.0-1.2) Aspartate Amino Transf (AST/SGOT) 7U/L (0-50) Alanine Aminotransferase (ALT/SGPT) 5U/L (0-44) Alkaline Phosphatase 66U/L (25-160) Troponin T 0.036ug/L (0.0-0.011) Total Protein 6.1g/dL (6.4-8.4) Albumin 3.1g/dL (3.4-5.0) Hold Blue Top Tube Received (Received) Received (Received) Hold [place] Top Tube Received (Received) Hold Purple Top Tube Received (Received) Fibrinogen 258mg/dL (157-380) Test 07/06/16 19:20 Result Diagram: 07/06/16 2515 07/06/16 1540 X-Rays, CTs and MRIs X-RAY CHEST ONE VIEW, PORTABLE 07/06/16 IMPRESSION: Moderate to large left-sided pleural effusion and associated atelectasis. Superimposed infection cannot be excluded. Dictated by: Jaquan Buchanan M.D. on 07/06/2016 at 15:07 Approved by: Jaquan Buchanan M.D. 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 Acute hematemesis due to Upper GI bleeding. Present on admission. Persistent Site of bleeding was difficult to pin point of EGD. Embolization procedure with Interventional radiology done yan, awaiting procedure details but Dr Carter embolized the splenic artery - nothing by mouth - patient not a surgical candidate due to non operable cancer and co morbidities - Zosyn Iv, Dr Carter recommended antibiotics coverage in relation to the splenic artery embolization - Dr Prather and Dr Justice following - Poor prognosis, discussed with , DNR status at this time - Palliative care consult 2. Acute on chronic anemia due to blood loss. Present on admission Massive transfusion protocol initiated as the patient has received well over 10 units of packed RBC. Patient has received blood transfusion recently due to ongoing chronic anemia from bleeding from his cancer. Iron transfusions were planned as outpatient - monitor labs closely q 3 hours - transfusion triggers as per protocol 3 Acute Hypoxia Respiratory failure after procedure. 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 Dr Sullivan following - Oncology will be consulted in the morning 5 Diabetes Type 2 - medium Lispro correction algorithm 6 Hypothyroidism - concert Synthroid to Iv tomorrow 7 Chronic Kidney disease Stage 3 - avoid nephrotoxic insults - Acetaminophen as needed for mild pain/fever/headache - Bowel regimen as needed - Antiemetic as needed Patient admitted under inpatient status with expected length of stay > 2 midnights for severity of present symptoms, complexities of treatment plan and risk for adverse event . Resuscitation Status: DNR/DNI:Do Not Resuscitate/Intubate Time spent 1 hour critical care time spend. Discussed case with Dr Carter and Dr Crescencio heredia. Prognosis poor Bear Horvath MD Jul 06, 2016 19:35
--- NOTE | 2016-07-06 19:48 | PCM.ENDEGD ---
EGD Date of Service: Jul 06, 2016 Physician Hansel Justice M.D. Indication for Procedure GI bleeding Pre Procedure Diagnosis: GI bleeding Post Procedure Dx & Findings: Esophagus stomach full of blood and clots. Procedure Esophagogastroduodenoscopy PROCEDURE IN DETAIL: Patient was intubated by anesthesia and sedated. By the time I started the endoscopy, he was not on any pressors but he has 7 units of blood going in. Scope was entered into the esophagus and as soon as I entered the esophagus, a shunt had red blood as well as clots extending all the way into the GE junction. GE junction was visualized approximately 48 cm. He may have a hiatal hernia but it was very difficult to see. When we entered the stomach, the stomach was full of blood. We use the suctions to wash the clots and irrigate and this was not successful. Then we used the bio vac. This was not successful either. Scope was then withdrawn. What I noticed was that as we were sucking up clots and blood, it appears more blood was coming from somewhere. We were not make any progress. Gastric lavage is performed. 2 L in and got about 3-1/2 L out. Then scope was reintubated and again same situation occurred and it appears whenever we got out , was replaced by more blood originating from somewhere in the stomach. At this point, procedure was aborted as the patient was getting more distended. Because were are not making any progress. It appeared patient was still bleeding because I did see fresh blood coming from somewhere. After the EGD, the gastric lavage was put to gravity and was decompressed as much as we could. Again clot and blood was coming out of the tube. Impression Unable to visualize adequately due to the bleed, clot, and active bleeding. At this point, I do not know if the bleeding is from the tumor or elsewhere. Notify surgery however we are told that patient is not a surgical candidate and surgery should not be performed. Surgery recommended interventional radiology. Recommendation Continue IV Protonix Presedation Assessment Risks and Benefits Informed consent was obtained from the patient after all risks and benefits including but not limited to drug reaction, infection, pain, bleeding, perforation, as well as alternatives were discussed. Patient monitoring Continuous pulse oximetry, cardiac monitoring, blood pressure monitoring, IV access, and oxygen at 2L per nasal cannula. Complications There were no periprocedural complications identified. Post Procedure Plan Post Procedure Recommendations 1. Restrict activities today. 2. Resume normal activities in the morning. 3. Resume medications. 4. GERD behavioral modification: - Avoid fatty, acidic, spicy, large meals - Do not lie down after meals - Do not eat or drink anything for at least 2 1/2 hours before going to bed at night - Discontinue tobacco and alcohol - Decrease or avoid caffeine - Avoid chocolate and mints - Decrease weight - Avoid aspirin and non steroidal anti-inflammatory agents (NSAID) such as Aleve, Advil, Mobic, Naproxen, Ibuprofen, etc 5. Add proton pump inhibitor. Take 30 minutes before 1st meal of the day. 6. Patient informed of normal post procedure side effects as bloating, drowsiness, blood streaking in the stool 7. If gastric biopsy reveal H.pylori, continue with appropriate treatment 8. If small bowel biopsy reveals celiac, continue with appropriate treatment 9. Please don't hesitate to call me with any questions Hansel Justice MD Jul 06, 2016 19:48
[2016-07-06 19:50] LABS: INR 1.12 ratio
[2016-07-06 19:58] LABS: Magnesium 1.7 mg/dL (1.6-2.6)
[2016-07-06] MEDS ORDERED: Propofol 10,000 mCg/mL 100 mL Inj ONE (20:58)
[2016-07-06] MEDS ORDERED: fentaNYL 2,500 mCg/250 mL Premix IV ONE (20:58)
[2016-07-06] MEDS ORDERED: Ketamine 10 mg/mL 20 mL Inj ONE (21:07)
[2016-07-06] MEDS ORDERED: Phenylephrine/NS 100 mCg/mL 10 mL Syringe IVPUSH ONE (21:07)
[2016-07-06] MEDS ORDERED: Succinylcholine Chloride 20 mg/mL 5 mL Inj ONE (21:07)
[2016-07-06] MEDS ORDERED: EPHEDrine/NS 5 mg/mL 5 mL Syringe ONE (21:07)
[2016-07-06] MEDS ORDERED: Rocuronium 10 mg/mL 5 mL Inj ONE (21:07)
--- NOTE | 2016-07-06 21:08 | ABG ---
DateTimeAnalyzed 21:06:00 -_ pH ____7.362 - 7.350 7.450 pCO2 ___45.8__ -mmHg 35.0 45.0 pO2 132 -mmHg 69.0 116 HCO3- ___25.4__ -mmol/L 22.0 26.0 ABE ____0.4__ -mmol/L -2.0 2.0 tHb ____9.1__ -g/dL O2Hb ___96.2__ -% COHb ____1.8__ -% MetHb ____1.1__ -% sO2 ___99.1__ -% 25.0 FIO2 __100.0__ -% Drawn By MK - Date/Time Notified____ 21:08:00 -_ Notified By MK - B 752 -mmHg tO2 ___12.6__ -Vol% OrderingPhysicianInitials mf - Jordan test N/A -
[2016-07-06 21:29] LABS: BASOPHILS % (AUTO) 0.1 % (0-3); EOSINOPHILS % (AUTO) 0.4 % (0-5); MONOCYTES % (AUTO) 12.5 % (4-12); Mean Corpuscular Hemoglobin 29.8 pg (27.0-35.0); Mean Corpuscular Volume 90.1 fL (81-100); NEUTROPHILS % (AUTO) 77.9 % (40-74); Platelet Count 240 bil/L (150-400)
--- NOTE | 2016-07-06 21:39 | DRSVH ---
PROCEDURE: EMBOLIZATION OF BLEED INDICATIONS: GASTRIC BLEED FROM STOMACH CANCER COMPARISON: None. Technique: Fluoroscopy time: 13 minutes 1. Retrograde access of the right common femoral artery. 2. Aortogram at the level of the celiac axis. 3. Selective splenic arteriogram. 4. Embolization of the splenic artery. 5. Completion splenic arteriogram. The indications, alternatives, benefits, risks, and complications of the procedure were explained to the patient's . Informed written consent was obtained and placed in the chart. The patient was b rought to the angiography suite, and general anesthesia was provided by the anesthesiology service. Maximum sterile barrier technique was employed per standard protocol, including hand hygiene, cap, ma sk, sterile gown and gloves, and 2% chlorhexidine. Sterile ultrasound probe cover was also utilized. The right common femoral artery was accessed in a retrograde fashion under ultrasound guidance with a micropuncture needle. An 035 wire was advanced into the aorta. The micropuncture sheath was exchang ed for a 5 Divehi sheath. A flush catheter was used to perform an aortogram at the level of the davonte ac axis. Next, a 5 Divehi Sos catheter was used to cannulate the celiac axis. Arteriogram was perform ed. A Prograte microcatheter was then used to cannulate the splenic artery. Arteriogram was performed . Through the microcatheter, multiple embolization coils were deployed in the distal splenic artery. Completion arteriogram demonstrated lack of continued extravasation into the gastric lumen. The leslie ters were removed and external closure device was deployed, and hemostasis was achieved. FINDINGS: Initial arteriogram demonstrates conventional celiac axis anatomy. Splenic arteriogram dem onstrates alberto extravasation of contrast into the gastric fundus. Completion arteriogram after splen ic artery embolization demonstrates lack of extravasation. There is also lack of opacification of the spleen, as expected. IMPRESSION: 1. Distal splenic artery embolization and successful embolization of a large gastric bleed. Dictated by: Jazmyn Lyn M.D. on 07/06/2016 at 21:31 Approved by: Jazmyn Lyn M.D. on 07/06/2016 at 21:37
[2016-07-06 21:40] LABS: INR 1.12 ratio
[2016-07-06 21:44] LABS: Magnesium 1.7 mg/dL (1.6-2.6)
--- NOTE | 2016-07-06 22:51 | PCM.ADCARE ---
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 An aggressive GIST of the stomach that was not resectable These active diagnoses are sufficient risk that focused discussion on advance car planning is indicated in order to allow the patient to thoughtfully consider personal goals of care and if situations arise that prevent the ability to personally give input to insure appropriate representation of their personal desires through documentation or informed surrogate decision makers Parties in Attendance: and me Decisional Capacity: good Plan: I reviewed with the the poor prognosis with active complication GI bleeding with an aggressive stomach cancer. We discussed aggressive care, including potential intubation and mechanical ventilation as well as CPR. confirms that according to patient's wishes he will be made DNR. Patient has been dealing with this cancer for a long time and does not want him to suffer CODE STATUS: DNR Time Spent Adv.Care Planning: Total time spent [id number] in education and discussion directly related to Advance Care Plannin minutes Bear Horvath MD Jul 06, 2016 22:43
[2016-07-06 22:58] LABS: APPEARANCE,URINE CLEAR (CLEAR,HAZY); COLOR,URINE YELLOW (YELLOW); OCCULT BLOOD,URINE TRACE (NEGATIVE); PH,URINE 5.5 (5.0-8.0); UROBILINOGEN,URINE NORMAL (NORMAL)
--- NOTE | 2016-07-06 23:25 | PCM.ANEP1 ---
Post Anesthesia Phase 1 PACU Phase 1 Assessment Date of Service: Jul 06, 2016 Vital Signs Vital Signs Date Time Temp Pulse Resp B/P Pulse Ox O2 Delivery O2 Flow Rate FiO2 07/06/16 21:33 70 07/06/16 20:58 128 132/53 100 100 07/06/16 18:09 121 27 55/34 97 Nasal Cannula 2 07/06/16 16:08 35.6 101 25 73/45 96 Room Air 07/06/16 16:00 106 19 83/38 97 Room Air 07/06/16 15:48 35.8 120 22 86/73 96 Room Air Anesthetic Administered: GA Level of Alertness: Sleeping, hard to arouse LUIS's with Equal Strength: No Pain: No Nausea or Vomiting: No Airway Device: Endotrachial Tube Oxygen Delivery: Mechanical Ventilator Lungs: Clear to Auscultation Summary Transported directly back to ICU hr 109 [id number]% rr15 130/55 intubated Hilario Leiva MD Jul 06, 2016 23:25
--- NOTE | 2016-07-06 23:25 | PCM.ANEP2 ---
Post Anesthesia Evaluation ASA/CMS Post Anesthesia VS in Patient's Normal Range?: Yes Resp Stable; Airway Patent?: Yes CV Function & Hydration Stable: Yes Mental Status Recovered?: No Pain control Satisfactory?: Yes N/V Control Satisfactory?: Yes Hilario Leiva MD Jul 06, 2016 23:25
--- NOTE | 2016-07-06 23:29 | CONS ---
[address] [address] CONSULTATION REPORT PATIENT: CECILY COLÓN : 1940 MR#: [id number] ADMIT: 07/06/2016 JOB ID: [id number] DATE OF SERVICE: 07/06/2016 HISTORY OF PRESENT ILLNESS: This is a 76-year-old with massive GI bleeding. This is a 76-year-old gentleman with history of GIST tumor for the past two years and had 2 units of blood given due to anemia on June 25, 2016. He did have upper endoscopy done which showed that he had a GIST tumor in October [address] aCbral. The upper endoscopy at that time showed that there was a GIST tumor encroaching the GE junction into the cardia region. He described it as a persistent large proximal tumor. Then today he started vomiting fresh blood. Therefore, he was brought to the emergency department. He was noted to have epigastric pain with nausea, vomiting of alberto blood, hypotensive with tachycardia. By the time I saw him, he was given about 2 units of blood and still hypotensive. He was mentating, however, he seemed to be tired and I spoke with his about the history, which is essentially he was doing well, however, he was slowly losing blood, and he was receiving blood at the time. He was taking chemo for his GIST tumor, however, he was on a break from his chemo based protocol. I was not able to obtain review of systems, but he was literally vomiting blood in front of me. PAST MEDICAL HISTORY: Diabetes, obesity, hypertension, heart failure, chronic kidney disease stage II, ileocolonic anastomosis with colectomy, GIST tumor, previous GI bleed secondary to ulcerative mass lesion in the stomach and erosive esophagitis, sleep apnea. PAST SURGICAL HISTORY: Back surgery, colonic surgery as described above. SOCIAL HISTORY: No smoking, alcohol. FAMILY HISTORY: Noncontributory. PHYSICAL EXAMINATION: When I saw him, his blood pressure was 83/38, pulse 106, respirations 18, temp is 35.8. Head and neck: No icterus. He appeared pale. Lungs: Clear. Cardiovascular: Tachycardic S1, S2. Abdomen: Distended. Tender on the left upper quadrant. No guarding, rebound or firmness. Obese with active bowel sounds. Extremities: Pitting edema of the ankles. LABORATORY DATA: Hemoglobin was 8.7 when I saw him. Platelets are 345,000. INR was 1.0. Troponin was 0.036. Albumin 3.1. LFTs are normal. IMPRESSION: Active gastrointestinal bleeding with hemodynamic instability. Patient was recommended hemodynamic stability with more blood transfusion. Anesthesia notified for sedation and possible intubation. Surgery recommended surgical consult, which they will be obtaining. I was informed that two surgeons have looked at him in the past and he was deemed not a surgical candidate. I spent over two hours seeing and examining this patient and coordinating care for this patient. SEE
[2016-07-07] VITALS (10 sets, daily range): BP systolic 97–153; BP diastolic 40–78; PULSE 72–78; RESP 18–24; O2SAT 92–100
[2016-07-07] MEDS: Piperacillin-Tazo 3.375 Gm Inj 3.375 GM in Dextrose 5% Minibag Plus 50 ML IV SCH ×4 (00:04→22:08)
[2016-07-07] MEDS: Propofol Inj 1,000,000 MCG in IV Premix 1 EACH IV SCH ×7 (00:20→22:03)
[2016-07-07] MEDS ORDERED: Glucose 40% Oral Gel 15 Gm Tube PO PRN (00:30)
[2016-07-07] MEDS: Pantoprazole 8 mg/Hr Infusion IV SCH ×6 (01:46→22:03)
[2016-07-07] MEDS: Insulin LISPRO 300 Unit/3 mL Inj SUBQ SCH ×5 (01:46→20:30)
[2016-07-07] MEDS: Octreotide 500 mCg/100 mL NS IV SCH ×4 (01:47→13:24)
[2016-07-07 03:38] LABS: BASOPHILS % (AUTO) 0.2 % (0-3); EOSINOPHILS % (AUTO) 0.1 % (0-5); MONOCYTES % (AUTO) 12.5 % (4-12); Mean Corpuscular Hemoglobin 29.1 pg (27.0-35.0); Mean Corpuscular Volume 86.1 fL (81-100); NEUTROPHILS % (AUTO) 76.7 % (40-74); Platelet Count 262 bil/L (150-400)
--- NOTE | 2016-07-07 04:24 | ABG ---
DateTimeAnalyzed 04:21:00 -_ pH ____7.556 - 7.350 7.450 pCO2 ___28.5__ -mmHg 35.0 45.0 pO2 ___69.9__ -mmHg 69.0 116 HCO3- ___25.3__ -mmol/L 22.0 26.0 ABE ____3.7__ -mmol/L -2.0 2.0 tHb ___11.2__ -g/dL O2Hb ___94.3__ -% COHb ____1.4__ -% MetHb ____1.2__ -% sO2 ___96.8__ -% 25.0 FIO2 ___60.0__ -% Drawn By MK - Notified By MK - Notified Whom Dr Fuimono - B 749 -mmHg tO2 ___14.9__ -Vol% OrderingPhysicianInitials mf - Jordan test N/A -
--- NOTE | 2016-07-07 06:25 | ABG ---
DateTimeAnalyzed 06:22:00 -_ pH ____7.453 - 7.350 7.450 pCO2 ___39.0__ -mmHg 35.0 45.0 pO2 ___73.8__ -mmHg 69.0 116 HCO3- ___26.9__ -mmol/L 22.0 26.0 ABE ____3.3__ -mmol/L -2.0 2.0 tHb ___11.1__ -g/dL O2Hb ___93.9__ -% COHb ____1.3__ -% MetHb ____1.1__ -% sO2 ___96.2__ -% 25.0 FIO2 ___70.0__ -% PEEP ____5.0__ -cmH2O Set_RR ___18.0__ -b/min Vt __470.0__ -L Drawn By MK - Date/Time Notified____ 06:24:00 -_ Spontaneous_RR ___18.0__ -b/min Oxygen Device 1 VENTILATOR - Notified By MK - B 749 -mmHg tO2 ___14.7__ -Vol% OrderingPhysicianInitials mf - Jordan test N/A -
--- NOTE | 2016-07-07 07:10 | NUR ---
CCU Admit Received patient transferred from labor conciliator s/p embolization to splenic artery with coil placed per report. Pt arrived @ 2044 remain intubated, moderate amt of bright red blood coming out of nose and mouth (450cc)with large amount of blood clots, suctioned prn, abd distended, firm and round with no bowel tones, continued on subsequent phase of massive transfusion protocol, given 4 units prbc, 2 units ffp and 1 unit platelets, Repeat H/H at midnight resulted with 11.9/34.6, H/H @ 0300 11.5/34, H/H 11.1/33.1 @ 0600. MRSA nasal screen, ua and sputum sent to lab, updated with plan of care for the shift.
--- NOTE | 2016-07-07 08:33 | PCM.PNMED ---
Subjective Date of Service Jul 07, 2016 Subjective Patient is intubated and sedated. No overnight events. Exam Vital Signs Vital Sign - Last Date Time Temp Pulse Resp B/P Pulse Ox O2 Delivery O2 Flow Rate FiO2 07/07/16 08:00 69 121/55 98 60 07/07/16 04:15 36.6 24 Mechanical Ventilator 07/06/16 18:09 2 Intake and Output 07/06/16 07/06/16 07/07/16 Cumulative From/Thru 15:00 23:00 07:00 07/06/16 15:48 - 07/07/16 05:44 Intake Total 0 ml 3572 ml 3572 ml Output Total 1500 ml 1500 ml Balance 0 ml 2072 ml 2072 ml Intake Oral 0 ml 0 ml IV Total 0 ml 3572 ml 3572 ml Output Urine Total 1050 ml 1050 ml Other 450 ml 450 ml # Bowel Movements 0 0 Exam Intubated and sedated. Anicteric sclera Lungs clear except some rhonchi Heart regular without murmur Abdomen distended, but soft Skin pale 2+ leg edema right leg cool but with good capillary refill and no cyanosis. IVs and Medications Medications Reviewed: Medications were reviewed in detail Lab and Diagnostics Result Diagram: 07/07/16 0600 07/07/16 0300 X-Rays, CTs and MRIs X-RAY CHEST ONE VIEW, PORTABLE 07/06/16 IMPRESSION: Moderate to large left-sided pleural effusion and associated atelectasis. Superimposed infection cannot be excluded. Dictated by: Jaquan Buchanan M.D. on 07/06/2016 at 15:07 Approved by: Jaquan Buchanan M.D. 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 Acute hematemesis due to Upper GI bleeding. Present on admission. Appears resolved. Site of bleeding was difficult to pin point of EGD. Embolization procedure with Interventional radiology done tonight, awaiting procedure details but Dr Carter embolized the splenic artery - nothing by mouth - patient not a surgical candidate due to non operable cancer and co morbidities - Zosyn Iv, Dr Carter recommended antibiotics coverage in relation to the splenic artery embolization - Dr Prather and Dr Justice following - Poor prognosis, discussed with , DNR status at this time - Palliative care consult Will re address resection with general surgery this AM. Possible repeat endoscopy in 1-2 days. Keep intubated for airway protection. #. Massive acute blood loss anemia. Present on admission, stable with hct 34 after 14 units PRBC. Massive transfusion protocol initiated as the patient has received well over 10 units of packed RBC. Patient has received blood transfusion recently due to ongoing chronic anemia from bleeding from his cancer. Iron transfusions were planned as outpatient - monitor labs closely q 3 hours - transfusion triggers as per protocol #. Acute Hypoxia Respiratory failure after procedure. Present on admission - Propofol and Fentanyl drip initiated - continue Ventilator support Continue mechanical ventilation and sedation for this as well as airway protection today. #. Aggressive GIST of the stomach, POA and stable. non operable and on chemotherapy that may be failing. Dr Sullivan following - Oncology will be consulted in the morning. Plan as above. #. Cool right leg, new as of this AM. Will eval with a right arterial duplex ultrasound. #. Diabetes Type 2, POA and stable. - medium Lispro correction algorithm #. Hypothyroidism, POA and stable. - concert Synthroid to Iv tomorrow #. Chronic Kidney disease Stage 3, POA and stable. - avoid nephrotoxic insults - Acetaminophen as needed for mild pain/fever/headache - Bowel regimen as needed - Antiemetic as needed Patient admitted under inpatient status with expected length of stay > 2 midnights for severity of present symptoms, complexities of treatment plan and risk for adverse event . Pain Evaluation: Adequate Pain Control VTE Mechanical Devices: Intermittant Pneumatic CD Resuscitation Status: DNR/DNI:Do Not Resuscitate/Intubate Time spent 45 minutes Jordan Gallegos MD Jul 07, 2016 08:33
--- NOTE | 2016-07-07 09:53 | PCM.PNMED ---
Subjective Date of Service Jul 07, 2016 Subjective Patient is intubated Exam Vital Signs Vital Sign - Last Date Time Temp Pulse Resp B/P Pulse Ox O2 Delivery O2 Flow Rate FiO2 07/07/16 08:59 Ventilator 07/07/16 08:58 36.1 72 18 111/52 98 60 07/06/16 18:09 2 Intake and Output 07/06/16 07/06/16 07/07/16 Cumulative From/Thru 15:00 23:00 07:00 07/06/16 15:48 - 07/07/16 05:44 Intake Total 0 ml 3572 ml 3572 ml Output Total 1500 ml 1500 ml Balance 0 ml 2072 ml 2072 ml Intake Oral 0 ml 0 ml IV Total 0 ml 3572 ml 3572 ml Output Urine Total 1050 ml 1050 ml Other 450 ml 450 ml # Bowel Movements 0 0 Exam Patient is intubated. No new significant output from the tube since last night. Skin appears pale Head and neck shows obese neck Lungs bronchial breath sounds Cardiovascular regular rate and rhythm S1-S2 Abdomen obese nontender decreased distention versus yesterday with positive bowel sounds Lab and Diagnostics Result Diagram: 07/07/16 0600 07/07/16 0300 X-Rays, CTs and MRIs X-RAY CHEST ONE VIEW, PORTABLE 07/06/16 IMPRESSION: Moderate to large left-sided pleural effusion and associated atelectasis. Superimposed infection cannot be excluded. Dictated by: Jaquan Buchanan M.D. on 07/06/2016 at 15:07 Approved by: Jaquan Buchanan M.D. on 07/06/2016 at 15:16 Assessment & Plan Jose Elias Cabral is a 76 year old male with Aggressive GIST with previous GI bleed, diabetes mellitus type II, morbid obesity, hypertension, heart failure, chronic kidney disease stage 3, and ileocolonic anastomosis secondary to colectomy, who was brought to the emergency department by EMS for hematemesis. Easily attempted however because of it has active bleeding, visualization was poor and was unsuccessful. It was literally bleeding as we were getting clots out of his stomach. And the new bleeding was causing fresh new clots. He went to interventional radiology because surgery said he was not a surgical candidate. They coiled the splenic artery. At least for now the bleeding seemed to be under control. Continue IV PPI. In couple days, I would like to take another look with anesthesia support. To confirm the bleeding was from the tumor and not from somewhere else. . VTE Mechanical Devices: Intermittant Pneumatic CD Resuscitation Status: DNR/DNI:Do Not Resuscitate/Intubate Hansel Justice MD Jul 07, 2016 09:53
--- NOTE | 2016-07-07 10:15 | DRSVH ---
PROCEDURE: US DUPLEX DOPPLER UNILATERAL LEG ARTERIES, RIGHT INDICATIONS: cool leg TECHNIQUE: Color and pulse Doppler interrogation was performed of the right lower extremity arterial system, wit h image documentation. COMPARISON: None. FINDINGS: Vascular Ultrasound Procedure Report Findings(Artery of Lower Extremity)(Right) Common Femoral Artery(Distal) Velocity: 121.50 cm/s Profunda Femoris Artery(Proximal) Velocity: 58.30 cm/s Superficial Femoral Artery(Proximal) Velocity: 73.50 cm/s Superficial Femoral Artery(Mid-longitudinal) Velocity: 72.60 cm/s Superficial Femoral Artery(Distal) Velocity: 55.70 cm/s Popliteal Artery(Mid-longitudinal) Velocity: 43.70 cm/s Posterior Tibial Artery(Distal) Velocity: 62 cm/s Dorsalis Pedis Artery(Distal) Velocity: 48.10 cm/s Greyscale findings: Mild scattered plaque. IMPRESSION: Minimal scattered plaque and no hemodynamically significant right lower extremity periphe ral arterial stenosis. Dictated by: Gregg De Souza [facility] Interpreted: Cely Buckley MD on 07/07/2016 at 10:13 Transcribed by: HARVINDER on 07/07/2016 at 10:14 Approved by: Cely Buckley MD, PhD on 07/07/2016 at 16:59
--- NOTE | 2016-07-07 10:29 | NUR ---
NUTRITION ASSESSMENT: ASSESS: Pt is a 76yo M admitted to CCU for hematemesis. Pt is currently intubated and sedated. He is s/p embolization to splenic artery. Pt has been undergoing chemo for large inoperable gastric cancer. NPOx1 day. PMHX: Aggressive GIST, GI bleed, diabetes mellitus type II, morbid obesity, hypertension, heart failure, chronic kidney disease stage 3, and ileocolonic anastomosis secondary to colectomy. LABS: Reviewed. Consumer [employer] Manager 1.33, Glu 217, Ca 7.8, Alb 2.7 MEDS: Reviewed. Insulin, propofol at 34ml/hr to provide 897kcal/day GI: abdomen is distended, firm, round, minimal bowel tones SKIN: Lupillo 9, wound care pending CURRENT WTS: 153.9kg, BMI 47.3kg/m2, admit wt 146kg, IBW 78kg DIET: NPOx1 day EST. NEEDS: vent, BMI Kcals: 2920-3210kcal/day (20-22kcal/kg) Pro: 115-140g/day (1.5-1.8g/kg IBW) Fluids: ~3000ml/day (1ml/kcal/kg) NUTRITION DIAGNOSIS: 1.) Inadequate oral intake related to altered GI function as evidenced by current NPO status and pt with large inoperable gastric cancer. NUTRITION INTERVENTION: 1.) Will monitor POC and nutrition status. If pt remains intubated and NPO, recommend consider nutrition support if it fits with pt's goals of care. 2.) If GI tract is functional, recommend TF of vital 1.5. Start at trophic rate of 10ml/hr and holdx24 hrs to monitor tolerance. If tolerated, advance by 10ml q 6 hrs until reach goal rate of 70ml/hr to provide 2310kcal (3207kcal w/propofol) and 103gpro/day. Adjust goal rate based on daily propofol rate. 3.) If GI tract is not functional, recommend TPN. Recommend start TPN at 200g Dex, 65g AA and 20g lipids to provide 1140kcal (2037kcal w/propofol). Monitor labs closely. If tolerated, advance towards goal macronutrients of 400g Dex, 130g AA and 40g lipids to provide 2280kcal (3177kcal w/propofol) and 130g pro (100% estimated needs). Adjust based on daily propofol rate. MONITOR / EVAL: NPO, GI functional?, vent, labs, wt, POC, nutrition status. Will continue to monitor per high nutrition risk guidelines.
[2016-07-07 12:34] LABS: INR 1.02 ratio
--- NOTE | 2016-07-07 13:28 | PCM.PNSURG ---
Subjective Date of Service: Jul 07, 2016 Date of Service: Jul 07, 2016 Visit Information: Reason for Visit Upper Gi Bleed Surgery/Surgery Date Post-Op Day # Date of Admission: Jul 06, 2016 at 21:06 Hospital Day # Subjective: The patient is a 76-year-old gentleman with an aggressive GIST two years ago that was unfortunately not easily resectable due to encasement of the splenic artery. The patient started vomiting alberto red blood 07/06/16 with hypotension with a blood pressure in the 90's systolic and tachycardic with a heart rate in the 130's. He received 10 u of PRBC's in the ED and 4 u on the floor. He underwent Upper endoscopy showed large blood clot from mid esophageus to gastric pylorus with free flowing bright red blood under the blood clot. Dr. Justice could not visualize source of bleeding. Dr. Lyn with IR attempted angiography embolization of the splenic artery. Patient was intubated and sedated. was not in the room. Objective Objective General: intubated and sedated. Obese. Well-developed. HEENT: Normocephalic, atraumatic. External ears without defect. Pupils equal, round, minimally responsive, not pinpoint or dilated. Oropharynx free of erythema with moist mucosa. Normal dentition. Cardiovascular: Mildly tachycardic rate with normal rhythm with no murmurs, rubs , or gallops appreciated Pulmonary: intermittent coarse rhonchi bilaterally. Normal respiratory effort with no use of accessory muscles. Abdomen: Bowel tones present. Soft, Obese, nondistended. No hepatosplenomegaly or masses appreciated. Extremities: No clubbing, cyanosis, edema, or lymphadenopathy appreciated. Right lower extremity much colder than left. Skin: Normal temperature, turgor, and texture; no rash, ulcers, or subcutaneous nodules appreciated. Neurological: Cranial nerves grossly intact. Normal muscle strength, tone, and bulk. Reflexes, coordination, and sensory function within normal limits. No known gait impairment. Psychiatric: Normal mood and affect. Alert and oriented to person, place, and time. Vital Sign- Last 8 Hours Date Time Temp Pulse Resp B/P Pulse Ox O2 Delivery O2 Flow Rate FiO2 07/07/16 12:43 73 100 60 07/07/16 12:32 36.5 72 18 110/49 99 Mechanical Ventilator 60 07/07/16 08:59 Ventilator 07/07/16 08:58 36.1 72 18 111/52 98 Mechanical Ventilator 60 07/07/16 08:00 69 121/55 98 60 Intake and Output- Last 8 Hour 07/07/16 Cumulative From/Thru 07:00 07/06/16 15:48 - 07/07/16 05:44 Intake Total 3572 ml 3572 ml Output Total 1500 ml 1500 ml Balance 2072 ml 2072 ml Intake Oral 0 ml 0 ml IV Total 3572 ml 3572 ml Output Urine Total 1050 ml 1050 ml Other 450 ml 450 ml # Bowel Movements 0 0 Result Diagram: 07/07/16 1155 07/07/16 0300 Assessment & Plan Impression Status post day 1 following splenic artery embolization 2nd to aggressive GIST with encasement of splenic artery and upper GI bleed. Problems: Plan Upper endoscopy showed large blood clot from mid esophageus to gastric pylorus with free flowing bright red blood under the blood clot. Dr. Justice could not visualize source of bleeding. Dr. Lyn with IR will attempt angiography embolization. Patient remains stable at this time. Spoke with and before embolization she did not wish surgery. GI and Hospitalist team would like a re-eval with Surgery and decide weather or not to arrange transfer of patient. Dr. Peñaloza will see patient and family this afternoon. She has decided that if patient were to have a cardiac arrest due to blood loss and transfusions could not keep up with the rate of blood loss, that we should NOT attempt resuscitation. This is a change from the previous plan and that compressions, epi and shock would not help the underlying problem of blood loss. Continue supportive care with IV fluids and Blood transfusions. Medicine team to follow. Dr. Gerber following patient as outpatient. Resuscitation Status: DNR/DNI:Do Not Resuscitate/Intubate Attending Statement: I agree with Dr. Li's assessment and plan. Monitor Hct, ventilator support. [facility]. AUGUSTUS LI DO Jul 07, 2016 13:18 Marcus Prather MD Jul 08, 2016 08:23
[2016-07-07] MEDS: fentaNYL 2,500 mCg/250 mL 2,500 MCG in IV Premix 1 EACH IV SCH (14:19)
[2016-07-07] MEDS ORDERED: 0.9% Sodium Chloride 500 ML IV ONE (17:25)
--- NOTE | 2016-07-07 18:41 | NUR ---
Wound Care Patient seen at bedside, intubated on a ccu bed, sedated and restrained. In sidelying visualized patients buttocks and sacrum, noted to have blanchable venous congestion in this area, no pressure related skin issues noted, small skin tear at left forearm/wrist covered with mepilex dressing, at left pannus he has some excoriated skin that is 10 cms in length and weeping, this is treated with pillow case placed between folds of his skin.Change regularly. Wound to follow up as needed.
--- NOTE | 2016-07-07 19:02 | NUR ---
No bleeding No signs or symptoms of bleeding. Htc trending down slowly . Dr. Gallegos notified. Plan to continue serial labs. BP also trending down along with UOP notified Dr. Gallegos . NS bolus given. Patient turned q 2 hours. No skin break down. Patient does desat with turns but does slowly recover. Report given to shift mechanic RN
[2016-07-07] MEDS: 0.9% Sodium Chloride 500 ML IV SCH ×2 (20:32→22:09)
--- NOTE | 2016-07-07 21:51 | PROG NOTE ---
[address] [address] PROGRESS NOTE PATIENT: CECILY COLÓN : 1940 MR#: [id number] ADMIT: 07/06/2016 JOB ID: [id number] DATE: 07/07/2016 SUBJECTIVE: The patient is seen in followup. He remains sedated and intubated. After embolization of his splenic artery last night, there has been no significant bloody GI output. OBJECTIVE: Blood pressure 110/49, pulse 73, saturation 100% on 60% FiO2. General: He is sedated and intubated. Chest: He has coarse breath sounds. Heart: Regular rate and rhythm. No murmurs. Abdomen is mildly tympanitic but soft. He has a long midline laparotomy scar. He is nontender to deep palpation. LABORATORIES: White blood cell count 9.0, hemoglobin 11.1, hematocrit 32.0, platelets 262. Creatinine 1.33, glucose 217, calcium 7.8, lactate 0.9, albumin 2.6, pre-albumin 16, INR 1.02. 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 He appears to be stable. I have reviewed his clinical situation with Dr. Jordan Gallegos from the hospitalist service. I do not recommend urgent transfer to a tertiary care facility. I think that resection of his tumor would still be quite dangerous even after embolization of the splenic artery, because the tumor reportedly encases the splenic artery itself. I think with his medical comorbidities, this would be a highly morbid procedure, and should not be done in the emergency setting. My recommendation is to continue to treat him conservatively until he stabilizes. If he is able to leave the hospital, then would consider referring him back to a tertiary care facility for reconsideration of elective resection of his tumor.
[2016-07-08] VITALS (12 sets, daily range): BP systolic 95–120; BP diastolic 42–92; PULSE 72–80; RESP 18; O2SAT 92–97
[2016-07-08] MEDS: Octreotide 500 mCg/100 mL NS IV SCH ×8 (00:14→22:12)
[2016-07-08] MEDS: Propofol Inj 1,000,000 MCG in IV Premix 1 EACH IV SCH ×7 (02:02→22:11)
[2016-07-08] MEDS: Insulin LISPRO 300 Unit/3 mL Inj SUBQ SCH ×4 (02:16→20:30)
[2016-07-08] MEDS: Piperacillin-Tazo 3.375 Gm Inj 3.375 GM in Dextrose 5% Minibag Plus 50 ML IV SCH ×3 (05:28→23:33)
[2016-07-08] MEDS: Pantoprazole 8 mg/Hr Infusion IV SCH ×4 (06:15→16:42)
--- NOTE | 2016-07-08 06:44 | NUR ---
Hypotension/Low grade fever Initial sbp 90s, map<60s, given NS 500 cc bolus x 2, sbp improved in the low 100s with map>60; Suctioned small thick blood via ett, continued monitoring hct, remain in the 30s, no significant drop. Remain on vent support, briefly agitates with activity, continue on propofol and fentanyl gtt sedations. Febrile with low grade temp and BG 97 and 77 and 104 this am Bilateral soft wrist restraints on.
[2016-07-08] MEDS: fentaNYL 2,500 mCg/250 mL 2,500 MCG in IV Premix 1 EACH IV SCH ×2 (07:03→12:04)
--- NOTE | 2016-07-08 07:32 | PCM.PNMED ---
Subjective Date of Service Jul 08, 2016 Subjective Patient is intubated and sedated. Subjective and review of systems not obtainable. No overnight events other than 2 boluses needed for slightly low blood pressure. Exam Vital Signs Vital Sign - Last Date Time Temp Pulse Resp B/P Pulse Ox O2 Delivery O2 Flow Rate FiO2 07/08/16 04:31 83 102/47 95 60 07/08/16 04:01 37.1 18 Mechanical Ventilator 07/06/16 18:09 2 Intake and Output 07/07/16 07/07/16 07/08/16 Cumulative From/Thru 15:00 23:00 07:00 07/06/16 15:48 - 07/08/16 05:26 Intake Total 1846 ml 2243 ml 7661 ml Output Total 550 ml 450 ml 2500 ml Balance 1296 ml 1793 ml 5161 ml Intake Oral 0 ml IV Total 1846 ml 2243 ml 7661 ml Output Urine Total 550 ml 450 ml 2050 ml Other 0 ml 450 ml # Bowel Movements 0 0 Exam Patient is intubated and sedated. 18 O G-tube in place. Anicteric sclera. Lungs are clear with normal rate and effort Heart is regular without murmur gallop or rub Abdomen. It is firm and distended Extremities are with 1-2+ edema bilaterally. Skin is free of rash or lesions. IVs and Medications Medications Reviewed: Medications were reviewed in detail Lab and Diagnostics Result Diagram: 07/08/16 0420 07/08/16 0420 X-Rays, CTs and MRIs X-RAY CHEST ONE VIEW, PORTABLE 07/06/16 IMPRESSION: Moderate to large left-sided pleural effusion and associated atelectasis. Superimposed infection cannot be excluded. Dictated by: Jaquan Buchanan M.D. on 07/06/2016 at 15:07 Approved by: Jaquan Buchanan M.D. 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 Acute hematemesis due to Upper GI bleeding. Present on admission. Appears resolved. Site of bleeding was difficult to pin point of EGD. Embolization procedure with Interventional radiology done tonight, awaiting procedure details but Dr Carter embolized the splenic artery - nothing by mouth - patient not a surgical candidate due to non operable cancer and co morbidities - Zosyn Iv, Dr Carter recommended antibiotics coverage in relation to the splenic artery embolization - Dr Prather and Dr Justice following - Poor prognosis, discussed with , DNR status at this time - Palliative care consult will be ordered today. Second surgical opinion indicates unlikely to survive a resection attempt at this point. He has had a previous exploration for possible resection 2 years ago. The and indicated nursing yesterday that she would not want to repeat massive transfusion protocol if he had another event. We will address overall care with her today. #. Massive acute blood loss anemia. Present on admission, stable with hct 34 after 14 units PRBC. Massive transfusion protocol initiated as the patient has received well over 10 units of packed RBC. Patient has received blood transfusion recently due to ongoing chronic anemia from bleeding from his cancer. Iron transfusions were planned as outpatient - monitor labs closely q 3 hours - transfusion triggers as per protocol Hematocrit is been stable since yesterday. We will continue with every 8 hour hematocrit surveillance. We will discussed use of ongoing blood products with this morning when she arises. #. Acute Hypoxia Respiratory failure after procedure. Present on admission - Propofol and Fentanyl drip initiated - continue Ventilator support Continue mechanical ventilation and sedation for this as well as airway protection today. The patient continues to have a high FiO2 requirement over 60. No changes at this point for a day. #. Aggressive GIST of the stomach, POA and stable. non operable and on chemotherapy that may be failing. Dr Sullivan following - Oncology will be consulted in the morning. Plan as above. #. Cool right leg, new as of this AM. Will eval with a right arterial duplex ultrasound. Patient has a normal ultrasound of the right arterial system of the leg. We will continue to follow clinically. #. Diabetes Type 2, POA and stable. - medium Lispro correction algorithm, no change to clinical approach at this point. #. Hypothyroidism, POA and stable. - concert Synthroid to Iv tomorrow #. Acute renal failure on Chronic Kidney disease Stage 3, POA and stable. - avoid nephrotoxic insults The patient has a average and operative for 50 mils per shift. This point will continue when necessary saline boluses of 500 mils as needed for systolic blood pressure less than 90. - Acetaminophen as needed for mild pain/fever/headache - Bowel regimen as needed - Antiemetic as needed Patient admitted under inpatient status with expected length of stay > 2 midnights for severity of present symptoms, complexities of treatment plan and risk for adverse event . Pain Evaluation: Adequate Pain Control VTE Mechanical Devices: Intermittant Pneumatic CD Resuscitation Status: DNR/DNI:Do Not Resuscitate/Intubate Time spent 45 minutes . Pain Evaluation: Adequate Pain Control VTE Mechanical Devices: Intermittant Pneumatic CD Resuscitation Status: DNR/DNI:Do Not Resuscitate/Intubate Time spent 40 minutes Jordan Gallegos MD Jul 08, 2016 07:32
[2016-07-08] MEDS ORDERED: 0.9% Sodium Chloride 500 ML IV ONE (07:35)
--- NOTE | 2016-07-08 08:06 | PCM.PNSURG ---
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 The patient started vomiting alberto red blood 07/06/16 with hypotension with a blood pressure in the 90's systolic and tachycardic with a heart rate in the 130's. He received 10 u of PRBC's in the ED and 4 u on the floor. He underwent Upper endoscopy showed large blood clot from mid esophageus to gastric pylorus with free flowing bright red blood under the blood clot. Dr. Justice could not visualize source of bleeding. Dr. Lyn with IR attempted angiography embolization of the splenic artery. Patient currently is intubated and sedated and vent dependent for now with possible aspiration pneumonia and remains not a surgical candidate. Patient was intubated and sedated. was not in the room. Objective Objective General: intubated and sedated. Obese. Well-developed. HEENT: Normocephalic, atraumatic. External ears without defect. Pupils equal, round, minimally responsive, not pinpoint or dilated. Oropharynx free of erythema with moist mucosa. Normal dentition. Cardiovascular: Mildly tachycardic rate with normal rhythm with no murmurs, rubs , or gallops appreciated Pulmonary: intermittent coarse rhonchi bilaterally. Normal respiratory effort with no use of accessory muscles. Abdomen: Bowel tones present. Soft, Obese, nondistended. No hepatosplenomegaly or masses appreciated. Extremities: No clubbing, cyanosis, edema, or lymphadenopathy appreciated. Right lower extremity much colder than left. Skin: Normal temperature, turgor, and texture; no rash, ulcers, or subcutaneous nodules appreciated. Neurological: Cranial nerves grossly intact. Normal muscle strength, tone, and bulk. Reflexes, coordination, and sensory function within normal limits. No known gait impairment. Psychiatric: Normal mood and affect. Alert and oriented to person, place, and time. Vital Sign- Last 8 Hours Date Time Temp Pulse Resp B/P Pulse Ox O2 Delivery O2 Flow Rate FiO2 07/08/16 04:31 83 102/47 95 60 07/08/16 04:01 37.1 72 18 103/44 95 Mechanical Ventilator 60 07/08/16 00:39 80 106/48 92 60 07/08/16 00:16 37.9 75 18 113/44 95 Mechanical Ventilator 60 Intake and Output- Last 8 Hour 07/08/16 Cumulative From/Thru 07:00 07/06/16 15:48 - 07/08/16 05:26 Intake Total 2243 ml 7661 ml Output Total 450 ml 2500 ml Balance 1793 ml 5161 ml Intake Oral 0 ml IV Total 2243 ml 7661 ml Output Urine Total 450 ml 2050 ml Other 0 ml 450 ml # Bowel Movements 0 0 Result Diagram: 07/08/1641907/08/16419 Assessment & Plan Impression Status post day 2 following splenic artery embolization with coil in place 2nd to aggressive GIST with encasement of splenic artery and upper GI bleed. Problems: Plan Patient remains stable at this time, ventilated and sedated. Dr. Peñaloza and surgical team maintain that patient is not a surgical candidate. ICU/Pulmonary team managing sedation and vent weening, IV antibiotics for possible aspiration pneumonia. Continue supportive care with IV fluids and Blood transfusions. Spoke with Primary Medicine team regarding plan. Dr. Justice with GI is considering a repeat EGD. Recommend consulting oncology, Dr. Gerber is patient oncologist and is currently out of town. Dr. Brown is aware of inpatient status. She has decided that if patient were to have a cardiac arrest due to blood loss and transfusions could not keep up with the rate of blood loss, that we should NOT attempt resuscitation. Consider nutrition options in 1-2 days. Resuscitation Status: DNR/DNI:Do Not Resuscitate/Intubate Resuscitation Status: DNR/DNI:Do Not Resuscitate/Intubate Attending Statement: I agree with Dr. Li's assessment and plan. AUGUSTUS LI DO Jul 08, 2016 08:06 Marcus Prather MD Jul 16, 2016 09:10
[2016-07-08] MEDS: Dextrose 5% 0.9% NaCl 1,000 ML IV SCH (08:13)
--- NOTE | 2016-07-08 14:21 | NUR ---
Social Work: Initial Assessment D: Per EMR review, pt is a 76 year old male admitted for Upper GI Bleed. Pt is [employer]. PCP is Ke Mayen DO. NOK is Marj Cabral, spouse, . Advanced directives completed- PLUCK TRIMMER requested directives for pt's chart from pt's . Readmit score not entered at this time. Pt discussed in am rounds. Pt is currently vented and sedated and [facility] days. Oncology is following as pt has previous diagnosis of gastric cancer. Pulm is following for IV abx and aspiration pneumonia along with vent management. Palliative care has also been consulted for possible goals of care discussion with pt's . PLUCK TRIMMER spoke with pt's via t/c. Sw role explained and contact info provided. See initial assessment. Pt lives in a single-story home with his . Pt has two steps to enter. Pt leads a "sedentary life" and sleeps in a recliner, only ambulating to the bathroom (20 feet). Pt uses a cane primarily but does own a walker. Pt's transports the pt and assists with meal prep, chores and some medication management. Pt has a history with [facility] but has never had skilled rehab. At this time, pt's clinical course and discharge needs continue to evolve. A: Pt who was previously living at home with his spouse. P: Evolving; PLUCK TRIMMER to continue to follow closely. Anticipate pt may require skilled rehab or HH at time of discharge. ERIN Arellano Addendum: 07/08/16 at 1430 by DRAKE GALEANA Amended: Links added.
--- NOTE | 2016-07-08 14:59 | DRSVH ---
PROCEDURE: X-RAY CHEST ONE VIEW, PORTABLE ([id number]) INDICATIONS: dyspnea TECHNIQUE: One view of the chest was acquired. COMPARISON: [facility], CR, XR CHEST 1VW (PORTABLE), 07/06/2016, 15:34. FINDINGS: Surgical changes and devices: ETT has been placed tip projected by 0.2 cm above the endy. Lungs and pleura: Moderate layering left pleural effusion is present and small right. Mid/basilar bi lateral airspace opacities are present, left greater than right. Mediastinum: Mediastinal contours appear normal. Heart size is normal. Bones and chest wall: No suspicious bony lesions. Overlying soft tissues appear unremarkable. IMPRESSION: 1. Pleural effusions, left greater right. 2. Mid/basal air space opacities consistent with compressive atelectasis versus bibasilar and midlung pneumonia. Dictated by: Gregg De Souza [facility] Interpreted: Cely Buckley MD on 07/08/2016 at 14:57 Transcribed by: HARVINDER on 07/08/2016 at 14:58 Approved by: Cely Buckley MD, PhD on 07/08/2016 at 16:48
--- NOTE | 2016-07-08 18:44 | NUR ---
Hypotension/endoscopy/BM Pt had episode of BP sustained systolic under 90 as well as MAP in 50s. Gave NS 500ml bolus per order with good result (see CCU sheet). Endoscopy done in room at bedside, pt desat some, so FIO2 turned up to 70% until pt recovers. BP also dropped when turned on left side for scope, but went up to low 100s over 40/50s once back in position. Pt had large, liquid dark stool this AM. FMS placed. Frequent oral care, q2h turns and rounding continues. Addendum: 07/08/16 at 1847 by GURVINDER CURTIS RN Afternooon hemoglobin of 29.6 reported to GI MD at bedside during EGD, no new orders at this time.
--- NOTE | 2016-07-08 18:45 | NUR ---
181 - Called to pt. room for S/B endoscopy procedure. Pt. tolerated well. placed on 100%, able to wean to 70% after procedure. Pt. sats 92-93% Will wean as tolerated.
[2016-07-08] MEDS: 0.9% Sodium Chloride 500 ML IV SCH (18:48)
--- NOTE | 2016-07-08 18:56 | PCM.ENDEGD ---
EGD Date of Service: Jul 08, 2016 Physician Marcus Prather MD Pre Procedure Diagnosis: GI bleeding Post Procedure Dx & Findings: Ulcers and ulcerative mass Procedure Esophagogastroduodenoscopy PROCEDURE IN DETAIL: After proper sedation, Olympus video endoscope was inserted into patient's mouth and esophagus was successfully intubated. Scope introduced esophagus. Esophagus showed normal shiny whitish mucosa consistent with squamous cell component. We saw some tinge of blood throughout the entire esophagus. Blood seems to be old. Z line was irregular at 48 cm from the incisors. The scope further advanced to the stomach. As soon as we entered the stomach, there was significant amount of blood clots in the fundus. We washed and suctioned and used a bio vac to suction further. We also change the patient's position and Trendelenburg reverse Trendelenburg and also weight into the left side. By changing the patient's position, we were able to mobilize the clot. Near the fundus cardia, large ulcerative mass noted. Size is hard to determine because the patient was buried in the clot. The ulcerative mass showed reddish spots which could be consistent with blood vessels. There were several spots like this. Furthermore toward the antrum, we saw a smaller 5-6 mm clean-based ulcers. Again due to the clot and blood, visualization was not ideal. Retroflexion was done. Stomach was easily inflated and deflatable using air. Scope further events to the distal duodenum. Duodenum revealed normal villous structures with normal appearing folds without any mass ulcer erosion. Also duodenum had significant amount of older blood. Impression Most likely the source of bleeding was from the ulcerative mass. No active bleeding noted. Visualization was not ideal. Recommendation Continue IV Protonix The definitive therapy is going to be surgery. However patient was deemed not a surgical candidate. We will defer further management to the hospitalist service. Presedation Assessment Risks and Benefits Informed consent was obtained from the patient after all risks and benefits including but not limited to drug reaction, infection, pain, bleeding, perforation, as well as alternatives were discussed. Patient monitoring Continuous pulse oximetry, cardiac monitoring, blood pressure monitoring, IV access, and oxygen at 2L per nasal cannula. Complications There were no periprocedural complications identified. Post Procedure Plan Post Procedure Recommendations 1. Restrict activities today. 2. Resume normal activities in the morning. 3. Resume medications. 4. GERD behavioral modification: - Avoid fatty, acidic, spicy, large meals - Do not lie down after meals - Do not eat or drink anything for at least 2 1/2 hours before going to bed at night - Discontinue tobacco and alcohol - Decrease or avoid caffeine - Avoid chocolate and mints - Decrease weight - Avoid aspirin and non steroidal anti-inflammatory agents (NSAID) such as Aleve, Advil, Mobic, Naproxen, Ibuprofen, etc 5. Add proton pump inhibitor. Take 30 minutes before 1st meal of the day. 6. Patient informed of normal post procedure side effects as bloating, drowsiness, blood streaking in the stool 7. If gastric biopsy reveal H.pylori, continue with appropriate treatment 8. If small bowel biopsy reveals celiac, continue with appropriate treatment 9. Please don't hesitate to call me with any questions Hansel Justice MD Jul 08, 2016 18:56
--- NOTE | 2016-07-08 20:43 | DRSVH ---
[facility] [address] [place] [address] Echocardiogram Report Name: CECILY COLÓN Eulalio e: 07/08/2016 Height: 71 in Hospital Exam Location: [facility] Weight: 350 lb Gender: Male BSA: 2.7 m2 : 1940 Age: 76 yrs BP: 102/47 mmHg Reason For Study: Dyspnea Ordering Physician: HOSPITALIST SVerformed By: Nolberto Norton Referring Physician: KATHIE TUCKER Interpretation Summary The left ventricle is normal in size. Left ventricular wall thickness is mildly increased. The ejection fraction is estimated to be 50-55%. The right ventricle is not well visualized. There is mild to moderate mitral regurgitation. There is trace aortic regurgitation. The right ventricular systolic pressure is estimated at 35 mmHg assuming a right atrial pressure of 15 mm Hg. There is no pericardial effusion. There is a moderately large left-sided pleural effusion. The patient was in atrial fibrillation with heart rates between 65-88 bpm during the exam. Compared to the previous study on 06/12/2015, the atrial fibrillation is new, LV systolic function is not as brisk, the degee of mitral regurgitation is higher and the pleural effusion is new. Procedure: A two-dimensional transthoracic echocardiogram with color flow and Doppler was performed. The study quality was technically difficult. Comparison is made with the echocardiogram of 06/12/15. A contrast injection of Definity was performed to improve assessment of LV function. The patient was in atrial fibrillation with heart rates between 65-88 bpm during the exam. Left Ventricle: The left ventricle is normal in size. Left ventricular wall thickness is mildly increased. The ejection fraction is estimated to be 50- 55%. Right Ventricle: The right ventricle is not well visualized. Atria: The left atrium is mildly dilated. Right atrium not well visualized. The interatrial septum is intact with no evidence for an atrial septal defect. Mitral Valve: The mitral valve leaflets appear mildly thickened, but open well. There is mild to moderate mitral regurgitation. Aortic Valve: The aortic valve is trileaflet. The aortic valve opens well. There is trace aortic regurgitation. Tricuspid Valve: The tricuspid valve is not well visualized, but is grossly normal. There is trace tricuspid regurgitation. The right ventricular systolic pressure is estimated at 35 mmHg assuming a right atrial pressure of 15 mm Hg. Pulmonic Valve: The pulmonic valve leaflets are thin and pliable; valve motion is normal. There is a trace or physiologic amount of pulmonic regurgitation. Great Vessels: The aortic root is normal size. The ascending aorta is mildly enlarged. The pulmonary artery is normal size. The IVC is dilated (diameter is greater than 2.1 cm) and it collapses less than 50% with a sniff. This suggests a high right atrial pressure of 15 mm Hg. Pericardium/ Pleura There is no pericardial effusion. There is an anterior echo-free space consistent with a fat pad. There is a moderately large left- sided pleural effusion. MMode/2D Measurements & Calculations LVIDd: 5.2 cm LA A2 area LVOT diam: 2.1 cm LV salgado. diameter/BSA LVIDs: 4.4 cm AoV Opening (cm/m^2): 1.9 FS: 15.8 % EPSS: 0.83 cm LA A4 area Ao root diam IVSd: 1.2 cm LVPWd: 1.3 cm LA length asc Aorta Diam (vol): 6.2 cm LA vol: 87.5 ml Ao Arch Diam (Prox LA vol index Trans): 2.9 cm IVC diam : 2.6 cm LV sys. diameter/BSA (cm/m^2): 1.6 Doppler Measurements & Calculations Ao V2 max MV E max oni Med Peak E' Oni TR max oni : 124.5 cm/sec : 106.7 cm/sec : 221.1 cm/sec Ao max PG E/E' med: 20.7 TR max P.5 mmHg : 6.2 mmHg Lat Peak E' Oni PA V2 max: 94.1 cm/sec Ao mean PG PA mean P.8 mmHg E/E' lat: 14.7 LVOT Max Oni E/e' average : 91.0 cm/sec DOMINIC(I,D): 2.6 cm sev ratio Ao V2 mean LV V1 max PG PA V2 mean DOMINIC indexed to BSA : 91.8 cm/sec : 63.8 cm/sec (cm^2/m^2): 0.97 Ao V2 VTI LV V1 VTI: 17.0 cmPA pr(Accel) : 31.8 mmHg DOMINIC(V,D): 2.5 cm2 Reading Physician:08:42 PM
[2016-07-08] MEDS ORDERED: Chlorhexidine 0.12% 15 mL Oral Solution MT SCH (22:30)
[2016-07-09] VITALS (13 sets, daily range): BP systolic 98–134; BP diastolic 42–61; PULSE 61–72; RESP 18; O2SAT 92–98
[2016-07-09] MEDS: Propofol Inj 1,000,000 MCG in IV Premix 1 EACH IV SCH ×6 (01:26→20:11)
[2016-07-09] MEDS: fentaNYL 2,500 mCg/250 mL 2,500 MCG in IV Premix 1 EACH IV SCH ×2 (01:26→20:37)
[2016-07-09] MEDS: Pantoprazole 8 mg/Hr Infusion IV SCH ×2 (01:27)
[2016-07-09] MEDS: Insulin LISPRO 300 Unit/3 mL Inj SUBQ SCH ×4 (02:30→20:10)
--- NOTE | 2016-07-09 03:42 | NUR ---
Respiratory, sedation VS as noted. Continues ventilated with sats high 90s on 70% fio2 without desats. Weaned sedation with Fentanyl down to 100mcg/h and Propofol to 25mcg/kg/min. Stirs with stimulation but does not follow commands. Tele afib with hr 70s to 80s. Doyle cath in place with adequate uop. No signs of bleeding. Octreotide and protonix gtts continue.
--- NOTE | 2016-07-09 04:40 | ABG ---
DateTimeAnalyzed 04:35:00 -_ pH ____7.320 - 7.350 7.450 pCO2 ___47.2__ -mmHg 35.0 45.0 pO2 ___72.2__ -mmHg 69.0 116 HCO3- ___23.7__ -mmol/L 22.0 26.0 ABE ___-1.9__ -mmol/L -2.0 2.0 tHb ____9.7__ -g/dL O2Hb ___91.4__ -% COHb ____1.0__ -% MetHb ____1.3__ -% sO2 ___93.6__ -% 25.0 FIO2 ___70.0__ -% PEEP ____5.0__ -cmH2O Set_RR ___18.0__ -b/min Vt __470.0__ -L Drawn By MD - Date/Time Notified____ 04:39:00 -_ Spontaneous_RR ___18.0__ -b/min Oxygen Device 1 VENTILATOR - Notified By MD - B 758 -mmHg tO2 ___12.6__ -Vol% OrderingPhysicianInitials mf - Jordan test N/A -
[2016-07-09] MEDS: Chlorhexidine 0.12% 15 mL Oral Solution MT SCH ×5 (05:51→20:11)
[2016-07-09] MEDS: Dextrose 5% 0.9% NaCl 1,000 ML IV SCH ×2 (05:52→23:40)
[2016-07-09] MEDS: Piperacillin-Tazo 3.375 Gm Inj 3.375 GM in Dextrose 5% Minibag Plus 50 ML IV SCH ×3 (05:52→22:31)
--- NOTE | 2016-07-09 08:00 | PCM.PNMED ---
Subjective Date of Service Jul 09, 2016 Subjective Patient is intubated and sedated. Review of systems and subjective are not obtainable. 4 events reviewed. He did have hypotension and desaturations during endoscopy. One large dark liquid stool. Exam Vital Signs Vital Sign - Last Date Time Temp Pulse Resp B/P Pulse Ox O2 Delivery O2 Flow Rate FiO2 07/09/16 07:20 Ventilator 07/09/16 07:20 37.0 61 18 102/48 98 60 07/06/16 18:09 2 Intake and Output 07/08/16 07/08/16 07/09/16 Cumulative From/Thru 15:00 23:00 07:00 07/06/16 15:48 - 07/09/16 05:36 Intake Total 2467 ml 2287 ml 77579 ml Output Total 600 ml 750 ml 3850 ml Balance 1867 ml 1537 ml 8565 ml Intake Oral 0 ml IV Total 2467 ml 2287 ml 04577 ml Output Urine Total 600 ml 750 ml 3400 ml Other 450 ml # Bowel Movements 1 1 Exam Intubated and sedated Anicteric sclera. Lungs are clear with normal rate and effort Heart is regular without murmur gallop or rub Abdomen soft nontender, flat Extremities grossly edematous Skin is free of rash or lesions. Skin is pale IVs and Medications Medications Reviewed: Medications were reviewed in detail Lab and Diagnostics Result Diagram: 07/09/16 0315 07/08/16 0420 X-Rays, CTs and MRIs X-RAY CHEST ONE VIEW, PORTABLE 07/06/16 IMPRESSION: Moderate to large left-sided pleural effusion and associated atelectasis. Superimposed infection cannot be excluded. Dictated by: Jaquan Buchanan M.D. on 07/06/2016 at 15:07 Approved by: Jaquan Buchanan M.D. 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 Acute hematemesis due to Upper GI bleeding. Present on admission. Appears resolved. Site of bleeding was difficult to pin point of EGD. Embolization procedure with Interventional radiology done tonight, awaiting procedure details but Dr Carter embolized the splenic artery - nothing by mouth - patient not a surgical candidate due to non operable cancer and co morbidities - Zosyn Iv, Dr Carter recommended antibiotics coverage in relation to the splenic artery embolization - Dr Prather and Dr Justice following - Poor prognosis, discussed with , DNR status at this time - Palliative care consult will be ordered today. Second surgical opinion indicates unlikely to survive a resection attempt at this point. He has had a previous exploration for possible resection 2 years ago. The and indicated nursing yesterday that she would not want to repeat massive transfusion protocol if he had another event. His hematocrit is slowly drifting down. We will rediscuss level care in greater detail again today and address intermittent transfusions are done. The patient is DNR/DNI. #. Massive acute blood loss anemia. Present on admission, stable with hct 34 after 14 units PRBC. Massive transfusion protocol initiated as the patient has received well over 10 units of packed RBC. Patient has received blood transfusion recently due to ongoing chronic anemia from bleeding from his cancer. Iron transfusions were planned as outpatient - monitor labs closely q 3 hours - transfusion triggers as per protocol Hematocrit is been stable since yesterday. We will continue with every 8 hour hematocrit surveillance. Plan as above #. Acute Hypoxia Respiratory failure after procedure. Present on admission - Propofol and Fentanyl drip initiated - continue Ventilator support Continue mechanical ventilation and sedation for this as well as airway protection today. Wean FiO2 to 55% FiO2. PEEP is up. We will follow try to wean oxygen today. #. Aggressive GIST of the stomach, POA and stable. non operable and on chemotherapy that may be failing. Dr Sullivan following - Oncology will be consulted in the morning. Plan as above. #. Cool right leg, new as of this AM. Will eval with a right arterial duplex ultrasound. Patient has a normal ultrasound of the right arterial system of the leg. We will continue to follow clinically. #. Diabetes Type 2, POA and stable. - medium Lispro correction algorithm, no change to clinical approach at this point. This is stable. #. Hypothyroidism, POA and stable. - concert Synthroid to Iv tomorrow #. Acute renal failure on Chronic Kidney disease Stage 3, POA and stable. - avoid nephrotoxic insults The patient is progression of his acute renal failure. His creatinine is up to 1.68. This likely represents ATN from his catastrophic gastrointestinal bleed. We will continue to follow and try to maintain a map of 65 or over. - Acetaminophen as needed for mild pain/fever/headache - Bowel regimen as needed - Antiemetic as needed Patient admitted under inpatient status with expected length of stay > 2 midnights for severity of present symptoms, complexities of treatment plan and risk for adverse event . Pain Evaluation: Adequate Pain Control VTE Mechanical Devices: Intermittant Pneumatic CD Resuscitation Status: DNR/DNI:Do Not Resuscitate/Intubate Time spent 45 minutes . Pain Evaluation: Adequate Pain Control VTE Mechanical Devices: Intermittant Pneumatic CD Resuscitation Status: DNR/DNI:Do Not Resuscitate/Intubate Jordan Gallegos MD Jul 09, 2016 08:00
--- NOTE | 2016-07-09 10:58 | PROG NOTE ---
[address] [address] PROGRESS NOTE PATIENT: CECILY COLÓN : 1940 MR#: [id number] ADMIT: 07/06/2016 JOB ID: [id number] DATE: 07/08/2016 REFERRING PHYSICIAN: Dr. Starks. SUBJECTIVE: This is a 76-year-old man who is currently on the ventilator suffering from complications of massive GI bleeding related to a progressive GI ST tumor in the abdomen. The recent history includes an apparently successful embolization of the bleeding site by Dr. 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 He was admitted for sudden hematemesis on July 06, two days ago. Emergent EGD could not identify the specific source of bleeding and patient was set up for embolization which was performed on July 06 with right common femoral artery access. There was extravasation into the gastric lumen which was halted by the use of multiple embolization coils in the splenic artery. According to Dr. Gallegos's note the patient had required massive transfusion protocol with a hematocrit of 34 after 14 units of red cells. He developed acute renal failure, hypotension, and respiratory failure possibly with aspiration, and is now on the ventilator. Dr. Gallegos has discussed the situation with his . The patient is not considered a surgical candidate by multiple consultants and previously as well, and the patient has been made DNR. CURRENT PROBLEMS: Include: 1. Acute hematemesis, now controlled after embolization, status post massive transfusion protocol. 2. Respiratory failure on mechanical ventilation with FiO2 of 55%. 3. Diabetes type 2. 4. Hypothyroidism. 5. Acute renal failure. Now being evaluated for cool right leg as well. All this is in the setting of an aggressive GIST. The cancer history is that this patient has been followed with care by Dr. Gerber; he was originally diagnosed in March 2014, with an aggressive GIST of the stomach. The tumor was originally found to encase the splenic artery and involved the stomach and he was not deemed able to undergo the type of surgery that would be required to completely excise this. He was initially treated with Gleevec and progressed and also received radiation in the summer 2015. After 1 1/2 years of Gleevec, he was switched to Sutent, 37.5 mg daily in December 2015. 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 Imaging prior to that on April 13, 2016 showed an increase in the gastric cardia mass involving the lateral limb of the left adrenal gland possibly, increased left hepatic lobe lesion and a small left pleural effusion. Most recent visit to oncology clinic with Ashley Gonzalez, July 02, 2016. At that time, he had required 2 units of packed cells prior week for hemoglobin 7.9, and was thought to have chronic GI bleeding or Sutent defect. Because of low iron saturation at 11%, he was also set up for iron dextran infusion, but at that time, he appeared otherwise relatively stable. Dr. Gerber had seen him on June 25 and set out the plan for transfusion and iron infusion and held Sutent with plan to restart Sutent on July 01. The patient was apparently relatively stable until he developed a sudden onset of massive hematemesis requiring admission. Subjectively, the patient is not communicative. He is on the respirator and sedated. He appears comfortable at this time on high FiO2. OBJECTIVELY: He is massively obese with a weight of 160.1 kg but up from 145.45 on July 06. His temperature is 37.5, pulse 73, respiratory 18, blood pressure 104/52, pulse ox 96% on 55% mechanical ventilator. Head and neck: He has no skin lesions. Ventilator tube is in place with no oral mucosal lesions apparent. Lungs are clear to auscultation anteriorly and laterally. Cardiac: The rhythm is regular without murmur; however, there is 2+ peripheral edema. I do not appreciate the cold extremity that was noted on exam. Abdomen: Protuberant and massively obese. There are bowel sounds. No masses or organomegaly. Extremities without ecchymoses or skin rash. LABORATORY VALUES: Hematocrit has drifted down a little bit to 29.6 from 34 1.5 yesterday. The white count yesterday was 9.0 and platelets 262. BUN and creatinine slightly higher than yesterday at 39 and 1.69 with normal electrolytes. Calcium 7.6, pre-albumin very low at 16. REVIEW OF IMAGING: The PET-CT scan performed on October 29, 2015 showed a large mass posterior to the gastric cardia with focal calcification measuring 7.8 x 5.3 x 7.9 cm, cephalocaudal with an SUV of 10.4. At that time, no hepatic metastases were identified, but the abdomen and pelvis CT on April 13, 2016 focus in the left hepatic lobe had increased in size measuring 29 mm and the calcified partially exophytic mass in the lateral aspect of the gastric cardia has increased in size measuring 9.8 x 1.6 cm. ASSESSMENT AND RECOMMENDATIONS: This is a patient who is gone more than two years with a diagnosis of aggressive GIST. It appears that he has failed imatinib. It may be too early to say whether he has got any benefit out of sunitinib but the development of the GI bleeding would indicate he probably has failed sunitinib as well, and there are no other FDA approved medications for this disease. There are other agents that are being investigated such as nilotinib, sorafenib and other and PDGF inhibitors; however, the patient's medical condition has declined so rapidly that this has become a moot point at least for the time being. If he had not developed GI bleeding and the massive complications that ensued, one would have continued him on Sutent and observed for any response. These efforts are all aimed at palliation. Given the rapid down turn in events, it is unlikely that he will gain enough strength to continue on with the previous plan and his family has already indicated that he would not want to go through another massive transfusion protocol. Therefore, the current efforts are aimed at stabilizing him and hopefully getting him to a point where he can leave the hospital; Dr. Gerber can discuss with them as well the very limited options he has for management at this point in time. I left a message with Dr. Gallegos to discuss these options. However, this point in time really all the efforts are aimed at stabilizing him in the short term, and then we can discuss with him how best to proceed with what I think should be palliative care in the future. I have not yet discussed hospice with his care team or family. I think this would be appropriate for Dr. Gerber to discuss should the patient stabilize enough to even make this a option. If he chooses not to go into hospice and does have a dramatic recovery, all of these issues can be readdressed.
--- NOTE | 2016-07-09 11:17 | NUR ---
[facility] Pt is vented at this time. SW spoke with Pt's NOK Marj Cabral regarding MIKE. Verbal signature given by NOK. Marilu Purdy MSW
--- NOTE | 2016-07-09 14:45 | PCM.PNSURG ---
Subjective Date of Service: Jul 09, 2016 Date of Service: Jul 09, 2016 Visit Information: Reason for Visit Upper Gi Bleed Surgery/Surgery Date Post-Op Day # Date of Admission: Jul 06, 2016 at 21:06 Hospital Day # Subjective: Yesterday - patient was hypotensive during EGD Patient was intubated and sedated. was not in the room. Objective Objective General: intubated and sedated. Obese. Well-developed. HEENT: Normocephalic, atraumatic. External ears without defect. Pupils equal, round, minimally responsive, not pinpoint or dilated. Oropharynx free of erythema with moist mucosa. Normal dentition. Cardiovascular: Mildly tachycardic rate with normal rhythm with no murmurs, rubs , or gallops appreciated Pulmonary: intermittent coarse rhonchi bilaterally. Normal respiratory effort with no use of accessory muscles. Abdomen: Bowel tones present. Soft, Obese, nondistended. No hepatosplenomegaly or masses appreciated. Extremities: No clubbing, cyanosis, edema, or lymphadenopathy appreciated. Right lower extremity much colder than left. Skin: Normal temperature, turgor, and texture; no rash, ulcers, or subcutaneous nodules appreciated. Neurological: Cranial nerves grossly intact. Normal muscle strength, tone, and bulk. Reflexes, coordination, and sensory function within normal limits. No known gait impairment. Psychiatric: Normal mood and affect. Alert and oriented to person, place, and time. Vital Sign- Last 8 Hours Date Time Temp Pulse Resp B/P Pulse Ox O2 Delivery O2 Flow Rate FiO2 07/09/16 13:00 Ventilator 07/09/16 13:00 37.8 66 18 106/45 98 Mechanical Ventilator 50 07/09/16 11:51 63 98/42 98 50 07/09/16 07:30 74 102/48 98 55 07/09/16 07:20 Ventilator 07/09/16 07:20 37.0 61 18 102/48 98 Mechanical Ventilator 60 Intake and Output- Last 8 Hour 07/09/16 Cumulative From/Thru 07:00 07/06/16 15:48 - 07/09/16 05:36 Intake Total 2287 ml 54419 ml Output Total 750 ml 3850 ml Balance 1537 ml 8565 ml Intake Oral 0 ml IV Total 2287 ml 24815 ml Output Urine Total 750 ml 3400 ml Other 450 ml # Bowel Movements 1 Result Diagram: 07/09/16 0315 07/08/16 0420 Assessment & Plan Impression Status post day 3 following splenic artery embolization with coil in place 2nd to aggressive GIST with encasement of splenic artery and upper GI bleed. Hematemesis Acute blood loss anemia, severe Respiratory failure, vent dependent Problems: Plan Patients vitals remains stable at this time, ventilated and sedated. Dr. Peñaloza and surgical team maintain that patient is not a surgical candidate and will remain on the case peripherally. ICU/Pulmonary team managing sedation and vent weening, IV antibiotics for possible aspiration pneumonia. Continue supportive care with IV fluids and Blood transfusions. Spoke with Primary Medicine team regarding plan. Dr. Justice with GI completed EGD yesterday with no active bleeding visualized. Dr. Gerber is patient oncologist and is aware of patient. has decided that if patient were to have a cardiac arrest due to blood loss and transfusions could not keep up with the rate of blood loss, that we should NOT attempt resuscitation. Consider nutrition options per primary team and GI recommendations. Resuscitation Status: DNR/DNI:Do Not Resuscitate/Intubate AUGUSTUS LI DO Jul 09, 2016 14:42
[2016-07-09] MEDS: Pantoprazole 4 mg/mL 10 mL Inj IVPUSH SCH (16:41)
--- NOTE | 2016-07-09 17:43 | NUR ---
RESPIRATORY/CARDIAC/FMS/URINE OUTPUT Patient remains on the ventilator at 50% FiO2/5 PEEP/18 Rate/470 Vt. He is tolerating this well, although SpO2 decreases to low 90s when patient turned on L side. Tele remains AFib in 60s, no ectopy. BP stable in 100s-110s/40s-50s. Labs are stable as well, will recheck Hct shortly, follow-up w/ night hospitalist. FMS has scant output this shift, no leak noted, but patient is passing flatus. Doyle patent, w/ 850 mL out this shift. Octreotide and Protonix gtt were discontinued this afternoon. No change in sedation. Will continue to monitor vitals, telemetry and respiratory status.
[2016-07-10] VITALS (13 sets, daily range): BP systolic 104–139; BP diastolic 43–56; PULSE 56–74; RESP 18–19; O2SAT 91–97
[2016-07-10] MEDS: Chlorhexidine 0.12% 15 mL Oral Solution MT SCH ×7 (00:06→23:22)
[2016-07-10] MEDS: Propofol Inj 1,000,000 MCG in IV Premix 1 EACH IV SCH ×7 (00:07→21:06)
[2016-07-10] MEDS: Insulin LISPRO 300 Unit/3 mL Inj SUBQ SCH ×4 (02:26→19:36)
[2016-07-10] MEDS: Dextrose 5% 0.9% NaCl 1,000 ML IV SCH (02:28)
[2016-07-10 06:08] LABS: Mean Corpuscular Hemoglobin 28.9 pg (27.0-35.0); Mean Corpuscular Volume 93.3 fL (81-100)
[2016-07-10] MEDS: Piperacillin-Tazo 3.375 Gm Inj 3.375 GM in Dextrose 5% Minibag Plus 50 ML IV SCH ×3 (07:15→23:22)
--- NOTE | 2016-07-10 07:29 | NUR ---
P: desaturation I: 100% fio2, suction E: Reposition to R and sats slowly trending down to 90%. 100% fi02 and suctioning not successful to keep sats > 92%. Increase fio2 from 50% to 55% and sats remain > 93%. RASS -3. Propofol and fentanyl for sedation and comfort. Will minimally open eyes when propofol on hold. Ventilator alarming for peak pressures. Overbreathes vent only when care given. Tele A fib, 50-80s, IVCD. BP stable. Jordyn UOP. Minimally dk stool via FMS.
[2016-07-10] MEDS: Pantoprazole 4 mg/mL 10 mL Inj IVPUSH SCH ×2 (07:50→15:58)
--- NOTE | 2016-07-10 08:16 | PCM.PNMED ---
Subjective Date of Service Jul 10, 2016 Subjective Patient is intubated and sedated. ROS and subjective are not obtainable. No overnight events. Exam Vital Signs Vital Sign - Last Date Time Temp Pulse Resp B/P Pulse Ox O2 Delivery O2 Flow Rate FiO2 07/10/16 07:36 54 111/44 95 50 07/10/16 04:30 Ventilator 07/10/16 04:30 37.3 18 07/06/16 18:09 2 Intake and Output 07/09/16 07/09/16 07/10/16 Cumulative From/Thru 15:00 23:00 07:00 07/06/16 15:48 - 07/10/16 06:46 Intake Total 1860 ml 1431 ml 94721 ml Output Total 850 ml 750 ml 5450 ml Balance 1010 ml 681 ml 35546 ml Intake Oral 0 ml 0 ml IV Total 1860 ml 1431 ml 40692 ml Output Urine Total 850 ml 750 ml 5000 ml Stool Total 0 ml 0 ml Other 450 ml # Bowel Movements 0 1 Exam Intubated, no distress Anicteric sclera. Lungs are clear with normal rate and effort, decreased breath sounds Heart is regular without murmur gallop or rub Abdomen soft nontender, standard Extremities are normal for gross edema Skin is free of rash or lesions. No spontaneous movement. IVs and Medications Medications Reviewed: Medications were reviewed in detail Lab and Diagnostics Result Diagram: 07/10/16 0600 07/10/16 0600 X-Rays, CTs and MRIs X-RAY CHEST ONE VIEW, PORTABLE 07/06/16 IMPRESSION: Moderate to large left-sided pleural effusion and associated atelectasis. Superimposed infection cannot be excluded. Dictated by: Jaquan Buchanan M.D. on 07/06/2016 at 15:07 Approved by: Jaquan Buchanan M.D. 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 Acute hematemesis due to Upper GI bleeding. Present on admission. Appears resolved. Site of bleeding was difficult to pin point of EGD. Embolization procedure with Interventional radiology done tonight, awaiting procedure details but Dr Carter embolized the splenic artery - nothing by mouth - patient not a surgical candidate due to non operable cancer and co morbidities - Zosyn Iv, Dr Carter recommended antibiotics coverage in relation to the splenic artery embolization - Dr Prather and Dr Justice following - Poor prognosis, discussed with , DNR status at this time - Palliative care consult will be ordered today. Second surgical opinion indicates unlikely to survive a resection attempt at this point. He has had a previous exploration for possible resection 2 years ago. The and indicated nursing yesterday that she would not want to repeat massive transfusion protocol if he had another event. His hematocrit is slowly drifting down. We will rediscuss level care in greater detail again today and address intermittent transfusions are done. The patient is DNR/DNI. Patient appears to continue to be stable from a bleeding perspective. #. Massive acute blood loss anemia. Present on admission, stable with hct 34 after 14 units PRBC. Massive transfusion protocol initiated as the patient has received well over 10 units of packed RBC. Patient has received blood transfusion recently due to ongoing chronic anemia from bleeding from his cancer. Iron transfusions were planned as outpatient - monitor labs closely q 3 hours - transfusion triggers as per protocol Hematocrit is been stable since yesterday. We will continue with every 8 hour hematocrit surveillance. Plan as above #. Acute Hypoxia Respiratory failure after procedure. Present on admission - Propofol and Fentanyl drip initiated - continue Ventilator support Continue mechanical ventilation and sedation for this as well as airway protection today. Wean FiO2 to 55% FiO2. PEEP is up. We will follow try to wean oxygen today. #. Probable aspiration pneumonia, POA. In addition the patient is growing staph aureus, pansensitive out of sputum. He is on Zosyn and we will continue this. The patient will have a follow-up chest x-ray today. He continues to have minimal improvement with his oxygen demand and an FiO2 of 0.55. Suspected this may well be his limitation to a short-term recovery and force a discussion of level of care next 1-2 days. He continues to be DO NOT RESUSCITATE. #. Acute renal failure on Chronic Kidney disease Stage 3, POA and worsening. His creatinine is increasing despite fluid resuscitation and attempts to maintain a map over 65. We will continue to follow closely. - avoid nephrotoxic insults #. Mild hypernatremia, new. We will change his fluids from saline to D5 half normal saline and follow closely. We will discuss discontinuing Plasma-Lyte with ICU doctor today. #. Aggressive GIST of the stomach, POA and stable. non operable and on chemotherapy that may be failing. Dr Sullivan following - Oncology will be consulted in the morning. Plan as above. #. Cool right leg, new as of this AM. Will eval with a right arterial duplex ultrasound. Patient has a normal ultrasound of the right arterial system of the leg. We will continue to follow clinically. #. Diabetes Type 2, POA and stable. - medium Lispro correction algorithm, no change to clinical approach at this point. This is stable. #. Hypothyroidism, POA and stable. - concert Synthroid to Iv tomorrow #. Acute renal failure on Chronic Kidney disease Stage 3, POA and worsening. - avoid nephrotoxic insults The patient is progression of his acute renal failure. His creatinine is up to 1.68. This likely represents ATN from his catastrophic gastrointestinal bleed. We will continue to follow and try to maintain a map of 65 or over. - Acetaminophen as needed for mild pain/fever/headache - Bowel regimen as needed - Antiemetic as needed Patient admitted under inpatient status with expected length of stay > 2 midnights for severity of present symptoms, complexities of treatment plan and risk for adverse event . Pain Evaluation: Adequate Pain Control VTE Mechanical Devices: Intermittant Pneumatic CD Resuscitation Status: DNR/DNI:Do Not Resuscitate/Intubate Time spent 45 minutes . VTE Mechanical Devices: Intermittant Pneumatic CD Resuscitation Status: DNR/DNI:Do Not Resuscitate/Intubate Jordan Gallegos MD Jul 10, 2016 08:16
[2016-07-10] MEDS: Dextrose 5% 0.45% NaCl 1,000 ML IV SCH ×2 (08:47→17:23)
--- NOTE | 2016-07-10 10:52 | DRSVH ---
PROCEDURE: X-RAY CHEST ONE VIEW, PORTABLE ([id number]) INDICATIONS: dyspnea TECHNIQUE: One view of the chest was acquired. COMPARISON: [facility], CR, XR CHEST 1VW (PORTABLE), 07/08/2016, 10:30. FINDINGS: Surgical changes and devices: Endotracheal tube is unchanged. Lungs and pleura: Large bilateral pleural effusions and basilar consolidation is unchanged when marcos red with the study dated . Mediastinum: Mediastinum is difficult characterize. Bones and chest wall: No suspicious bony lesions. Overlying soft tissues appear unremarkable. IMPRESSION: Unchanged bilateral pleural effusions and basilar consolidation. Dictated by: Jazmyn Lyn M.D. on 07/10/2016 at 10:50 Approved by: Jazmyn Lyn M.D. on 07/10/2016 at 10:50
--- NOTE | 2016-07-10 14:11 | NUR ---
P: Respiratory Distress I: Pt desats with turns. Turned Q 2 hours anyway. Sats drop to 89-91%. Fentanyl gtt 100mcqs/hr. Propofol gtt 30 mcqs/kg/min. IVF changed to d1/2NS 100cc/hr. IV sites patent without redness or swelling at the site. Doyle patent and draining genesis urine. FMS patent and draining minimal liquid stool. Pt raises his head up with activity. a-fib with IVCD. HR drops to 30's rate at times. Bilateral legs remain reddened. SCD's not used due to calf skin issues. NPO. No NGT or OGT per order. E: Stable S: Restraints on for pt safety. Frequent rounding.
--- NOTE | 2016-07-10 15:55 | NUR ---
NUTRITION FOLLOW-UP: ASSESS: Pt is a 76 YO male admitted to CCU with hematemesis. Pt is currently intubated and sedated. He is s/p embolization to splenic artery. Pt has been undergoing chemo for large inoperable gastric cancer. The patient is not a surgical candidate due to inoperable cancer and multiple comorbidities. Second surgical opinion indicates it is unlikely patient would survive a resection attempt at this point. He has had a previous exploration for possible resection 2 years ago. The and indicated to nursing that she would not want to repeat massive transfusion protocol if he had another event. His hematocrit has been stable since yesterday. Massive transfusion protocol initiated as the patient has received well over 10 units of packed RBC. He remains NPO x 4 D. Code status: DNR / DNI. PMHX: Aggressive GIST, GI bleed, diabetes mellitus type II, morbid obesity, hypertension, heart failure, chronic kidney disease stage 3, and ileocolonic anastomosis secondary to colectomy. LABS: Na 146, Chloride 109, BUN 53, Cr 1.81, Glu 177, Ca 7.9, PAB 8. MEDS: Insulin, fentanyl, propofol. GI: FMS draining liquid stool. SKIN: Lupillo 9. Per Die Holder, patient's buttocks and sacrum noted to have blanchable venous congestion, no pressure related skin issues noted, small skin tear at left forearm/wrist. At left pannus he has some excoriated skin that is 10 cms in length and weeping, this is treated with pillow case placed between folds of his skin. WT: 162.1 kg, BMI 49.0 kg/m2, admit wt 146kg, IBW 78kg DIET: NPO 4 days EST. NEEDS: vent, BMI Kcals: 2920-3210kcal/day (20-22kcal/kg) Pro: 115-140g/day (1.5-1.8g/kg IBW) Fluids: ~3000ml/day (1ml/kcal/kg) NUTRITION DIAGNOSIS: 1) Inadequate oral intake related to altered GI function as evidenced by current NPO status and pt with large inoperable gastric cancer - PERSISTS. NUTRITION INTERVENTION: 1) Will monitor POC and nutrition status. If pt remains intubated and NPO, recommend consider nutrition support if it fits with pt's goals of care. 2) If GI tract is functional, recommend TF of vital 1.5. Start at trophic rate of 10ml/hr and holdx24 hrs to monitor tolerance. If tolerated, advance by 10ml q 6 hrs until reach goal rate of 70ml/hr to provide 2310kcal (3207kcal w/propofol) and 103gpro/day. Adjust goal rate based on daily propofol rate. 3) If GI tract is not functional, recommend TPN. Recommend start TPN at 200g Dex, 65g AA and 20g lipids to provide 1140kcal (2037kcal w/propofol). Monitor labs closely. If tolerated, advance towards goal macronutrients of 400g Dex, 130g AA and 40g lipids to provide 2280kcal (3177kcal w/propofol) and 130g pro (100% estimated needs). Adjust based on daily propofol rate. MONITOR / EVAL: NPO, GI functional?, vent, labs, wt, POC, nutrition status. Will continue to monitor per high nutrition risk guidelines.
[2016-07-10 16:09] LABS: Mean Corpuscular Hemoglobin 28.8 pg (27.0-35.0); Mean Corpuscular Volume 94.4 fL (81-100)
--- NOTE | 2016-07-10 16:33 | ABG ---
DateTimeAnalyzed 16:29:00 -_ pH ____7.316 - 7.350 7.450 pCO2 ___48.2__ -mmHg 35.0 45.0 pO2 ___73.2__ -mmHg 69.0 116 HCO3- ___23.8__ -mmol/L 22.0 26.0 ABE ___-1.8__ -mmol/L -2.0 2.0 tHb ____8.9__ -g/dL O2Hb ___92.0__ -% COHb ____1.1__ -% MetHb ____1.3__ -% sO2 ___94.3__ -% 25.0 FIO2 ___60.0__ -% PRVC 470 - PEEP ____5.0__ -cmH2O Set_RR ___18.0__ -b/min Vt __483.0__ -L Drawn By jmw - Date/Time Notified____ 16:32:00 -_ Spontaneous_RR ___18.0__ -b/min Oxygen Device 1 VENTILATOR - Notified By jmw - Notified Whom DR GARRETT - B 763 -mmHg tO2 ___11.7__ -Vol% Jordan test N/A -
[2016-07-10] MEDS: fentaNYL 2,500 mCg/250 mL 2,500 MCG in IV Premix 1 EACH IV SCH (21:01)
[2016-07-11] VITALS (13 sets, daily range): BP systolic 111–135; BP diastolic 47–59; PULSE 52–63; RESP 18; O2SAT 91–99
[2016-07-11] MEDS: Propofol Inj 1,000,000 MCG in IV Premix 1 EACH IV SCH ×6 (00:23→21:59)
[2016-07-11] MEDS: Insulin LISPRO 300 Unit/3 mL Inj SUBQ SCH ×5 (03:44→20:30)
[2016-07-11] MEDS: Chlorhexidine 0.12% 15 mL Oral Solution MT SCH ×5 (03:44→20:38)
[2016-07-11] MEDS: Dextrose 5% 0.45% NaCl 1,000 ML IV SCH ×2 (03:44→15:01)
[2016-07-11 03:45] LABS: Mean Corpuscular Hemoglobin 28.6 pg (27.0-35.0)
[2016-07-11] MEDS ORDERED: KCl 40 mEq/500 mL D5W(K 3 - 3.7 & Creat < 2) IV ONE (05:30)
[2016-07-11] MEDS: Piperacillin-Tazo 3.375 Gm Inj 3.375 GM in Dextrose 5% Minibag Plus 50 ML IV SCH ×3 (05:54→22:16)
--- NOTE | 2016-07-11 06:35 | NUR ---
Resp Resp status stable overnight on current vent settings. Vent alarms for high peak pressures during turns and care. No drops in oxygen levels during turning or bed bath. No changes made to sedation medications and patient appears comfortable, occasionally overbreaths the vent. Patient has some oral secretions but minimal ET secretions.
--- NOTE | 2016-07-11 07:51 | PCM.PNMED ---
Subjective Date of Service Jul 11, 2016 Subjective Patient is intubated and sedated. ROS and subjective are not obtainable. No Overnight events Exam Vital Signs Vital Sign - Last Date Time Temp Pulse Resp B/P Pulse Ox O2 Delivery O2 Flow Rate FiO2 07/11/16 07:31 59 135/56 97 60 07/11/16 04:00 Ventilator 07/11/16 03:47 36.3 18 07/06/16 18:09 2 Intake and Output 07/10/16 07/10/16 07/11/16 Cumulative From/Thru 15:00 23:00 07:00 07/06/16 15:48 - 07/11/16 06:17 Intake Total 1487 ml 1785 ml 58300 ml Output Total 600 ml 800 ml 6850 ml Balance 887 ml 985 ml 59439 ml Intake Oral 0 ml IV Total 1487 ml 1785 ml 86835 ml Output Urine Total 600 ml 800 ml 6400 ml Stool Total 0 ml Other 450 ml # Bowel Movements 1 Exam Intubated and sedated Anicteric sclera. Lungs are clear with normal rate and effort, globally diminished breath sounds Heart is regular without murmur gallop or rub, distant Abdomen soft nontender, distended but soft Extremities 3+ edema. Skin is free of rash or lesions. IVs and Medications Medications Reviewed: Medications were reviewed in detail Lab and Diagnostics Result Diagram: 07/11/16 0335 07/11/16 033 X-Rays, CTs and MRIs X-RAY CHEST ONE VIEW, PORTABLE 07/06/16 IMPRESSION: Moderate to large left-sided pleural effusion and associated atelectasis. Superimposed infection cannot be excluded. Dictated by: Jaquan Buchanan M.D. on 07/06/2016 at 15:07 Approved by: Jaquan Buchanan M.D. 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 Acute hematemesis due to Upper GI bleeding. Present on admission. Appears resolved. This appears to remain stable after splenic artery embolization. has stated that she wants no secondary massive transfusion protocol ordered if he has another acute catastrophic hemorrhage. She is open to 1 or 2 units of blood at a time. #. Massive acute blood loss anemia. Present on admission, stable with hct 34 after 14 units PRBC. As above #. Acute respiratory failure, hypoxic The patient is essentially not able to wean down from 60% oxygen and PEEP of 5. He did have some issues with a dysfunctioning Peep valve yesterday. He is maintaining saturations of 99% today. No change in current management. #. Aspiration pneumonia, POA. We will continue empiric Zosyn. The patient also did have a significant blood aspiration event. No change in current management. #. Acute renal failure on Chronic Kidney disease Stage 3, POA and stable. His management today will continue to be 1/2 normal saline at 100 - avoid nephrotoxic insults #. Mild hypernatremia, new and improved. We will continue half normal saline today. We did stop Plasma-Lyte yesterday. #. Aggressive GIST of the stomach, POA and stable. non operable and on chemotherapy that may be failing. Dr Sullivan following - Oncology will be consulted in the morning. Plan as above. #. Cool right leg, resolved.. Duplex ultrasound reveals normal arterial flow. This is improved. Patient has a normal ultrasound of the right arterial system of the leg. We will continue to follow clinically. #. Diabetes Type 2, POA and stable. - medium Lispro correction algorithm, no change to clinical approach at this point. This is stable. #. Hypothyroidism, POA and stable. - concert Synthroid to Iv tomorrow #. Acute renal failure on Chronic Kidney disease Stage 3, POA and worsening. - avoid nephrotoxic insults Inpatient status. Pain Evaluation: Adequate Pain Control VTE Mechanical Devices: Intermittant Pneumatic CD Resuscitation Status: DNR/DNI:Do Not Resuscitate/Intubate . VTE Mechanical Devices: Intermittant Pneumatic CD Resuscitation Status: DNR/DNI:Do Not Resuscitate/Intubate Jordan Gallegos MD Jul 11, 2016 07:51
[2016-07-11] MEDS: Pantoprazole 4 mg/mL 10 mL Inj IVPUSH SCH ×2 (09:35→16:36)
--- NOTE | 2016-07-11 11:59 | PCM.ADCARE ---
Advance Care Planning Note Purpose of Encounter: To discuss possible compassionate extubation and movement towards comfort care Parties in Attendance: , sole decision-maker while patient is incapacitated Decisional Capacity: She is competent for decision making Subjective: The patient remains intubated and sedated. He remains on FiO2 of 60 for several days. He shows little evidence of being able to come off of the ventilator. Objective: The patient is intubated and sedated. His lungs are clear. His heart is regular. He is sedated and appears comfortable. He has gross edema both legs. Goals of Care Determinations: We will reestablish the following and is reinforced: # The patient is DO NOT RESUSCITATE # The patient will not undergo reactivation of massive transfusion protocol We discussed the possibly withdrawing the current level of care, specifically compassionate extubation with movement to comfort care. The patient's is generally in agreement with this and will discuss this with her son and likely the time will be on Tuesday. Plan: # DO NOT RESUSCITATE # No further massive transfusion # Probable compassionate extubation on July 12. Patient will be discussed with her son today and will communicate her details with me probably Tuesday morning. CODE STATUS: DO NOT RESUSCITATE Time Spent Adv.Care Plannin minutes Adv. Care Plan Documenation: As documented Jordan Gallegos MD Jul 11, 2016 11:59
--- NOTE | 2016-07-11 15:49 | NUR ---
Social Work- Continued D/C Planning D: EMR reviewed. Pt is on day 5 of hospitalization for Upper GI Bleed. Pt is currently intubated and sedated. MD to discussed with goals of care and potential for compassionate extubation and transitioning to comfort care. Oncology is following as pt has previous diagnosis of gastric cancer. Pulm is following for IV abx and aspiration pneumonia along with vent management. Palliative care has also been consulted for possible goals of care discussion with pt's . A: Pt who was previously living at home with his spouse and may transition to comfort care. P: Evolving; BIKE MECH[employer]IC to continue to follow closely. Marilu Purdy, BIKE MECHANIC
[2016-07-11] MEDS ORDERED: KCl 40 mEq/100 mL Premix (K 3 - 3.7 & Creat < 2) IV ONE (16:45)
--- NOTE | 2016-07-11 18:57 | NUR ---
Resp/Neuro/Sedation/Spouse visit Vent settings unchanged; scant ett secretions. Not overbreathing PRVC rate of 18. Sats 92-98%; tolerating q2h turning. Pupils sluggish, reactive, equal. No extremity movement today; no reaction to care or turning. Anasarcic; freq skin care & oral care given. Propofol @ 30mcg/kg/min, Fentanyl @ 100mcg/hr. Pt's Spouse Marj here this a.m.; met with Dr. Gallegos for update. Continue supportive care.
[2016-07-11] MEDS: fentaNYL 2,500 mCg/250 mL 2,500 MCG in IV Premix 1 EACH IV SCH (21:59)
[2016-07-12 00:30] VITALS: BP 121/64; PULSE 67; RESP 18; O2SAT 97
[2016-07-12] MEDS: Propofol Inj 1,000,000 MCG in IV Premix 1 EACH IV SCH ×3 (00:52→08:07)
[2016-07-12] MEDS: Chlorhexidine 0.12% 15 mL Oral Solution MT SCH ×3 (00:52→07:25)
[2016-07-12] MEDS: Dextrose 5% 0.45% NaCl 1,000 ML IV SCH (01:03)
[2016-07-12] MEDS: Insulin LISPRO 300 Unit/3 mL Inj SUBQ SCH ×2 (02:30→07:26)
[2016-07-12 04:08] VITALS: BP 109/46; O2SAT 97
[2016-07-12 04:30] VITALS: BP 112/54; PULSE 65; RESP 18; O2SAT 98
[2016-07-12] MEDS: Piperacillin-Tazo 3.375 Gm Inj 3.375 GM in Dextrose 5% Minibag Plus 50 ML IV SCH (06:41)
[2016-07-12 07:17] VITALS: BP 119/54; PULSE 65; RESP 18; O2SAT 97
[2016-07-12] MEDS: Pantoprazole 4 mg/mL 10 mL Inj IVPUSH SCH (07:25)
--- NOTE | 2016-07-12 07:28 | PCM.PNMED ---
Subjective Date of Service Jul 12, 2016 Subjective Patient is intubated and sedated. ROS and subjective not obtainable. Exam Vital Signs Vital Sign - Last Date Time Temp Pulse Resp B/P Pulse Ox O2 Delivery O2 Flow Rate FiO2 07/12/16 07:17 36.5 65 18 119/54 97 Mechanical Ventilator 60 07/06/16 18:09 2 Intake and Output 07/11/16 07/11/16 07/12/16 Cumulative From/Thru 15:00 23:00 07:00 07/06/16 15:48 - 07/12/16 06:38 Intake Total 1427 ml 1716 ml 39030 ml Output Total 720 ml 650 ml 8220 ml Balance 707 ml 1066 ml 15382 ml Intake Oral 0 ml IV Total 1427 ml 1716 ml 99161 ml Output Urine Total 700 ml 650 ml 7750 ml Stool Total 20 ml 20 ml Other 450 ml # Bowel Movements 1 2 Exam Patient is intubated sedated, endotracheal tube in place. Anicteric sclera. Lungs are clear with normal rate and effort Heart is regular without murmur gallop or rub Abdomen soft nontender, flat Extremities are notable for gross edema Skin is free of rash or lesions. IVs and Medications Medications Reviewed: Medications were reviewed in detail Lab and Diagnostics Result Diagram: 07/11/16 0335 07/11/16 2200 X-Rays, CTs and MRIs X-RAY CHEST ONE VIEW, PORTABLE 07/06/16 IMPRESSION: Moderate to large left-sided pleural effusion and associated atelectasis. Superimposed infection cannot be excluded. Dictated by: Jaquan Buchanan M.D. on 07/06/2016 at 15:07 Approved by: Jaquan Buchanan M.D. 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 Acute hematemesis due to Upper GI bleeding. Present on admission. Appears resolved. This appears to remain stable after splenic artery embolization. has stated that she wants no secondary massive transfusion protocol ordered if he has another acute catastrophic hemorrhage. She is open to 1 or 2 units of blood at a time. No further bleeding, recheck hematocrit. #. Massive acute blood loss anemia. Present on admission, stable with hct 34 after 14 units PRBC. As above #. Acute respiratory failure, hypoxic The patient is essentially not able to wean down from 60% oxygen and PEEP of 5. He did have some issues with a dysfunctioning Peep valve yesterday. He is maintaining saturations of 99% today. No change in current management. The patient relates on to improve any meaningful way. I talked to the about compassionate extubation possibly today. I am waiting to hear back from her. #. Aspiration pneumonia, POA. We will continue empiric Zosyn. The patient also did have a significant blood aspiration event. No change in current management. #. Acute renal failure on Chronic Kidney disease Stage 3, POA and stable. His management today will continue to be 1/2 normal saline at 100 - avoid nephrotoxic insults check creatinine today. #. Mild hypernatremia, new and improved. We will continue half normal saline today. We did stop Plasma-Lyte. Decrease rate to 50 miles per hour. #. Aggressive GIST of the stomach, POA and stable. non operable and on chemotherapy that may be failing. Dr Sullivan following - Oncology will be consulted in the morning. Plan as above. #. Cool right leg, resolved.. Duplex ultrasound reveals normal arterial flow. This is improved. Patient has a normal ultrasound of the right arterial system of the leg. We will continue to follow clinically. #. Diabetes Type 2, POA and stable. - medium Lispro correction algorithm, no change to clinical approach at this point. This is stable. #. Hypothyroidism, POA and stable. - concert Synthroid to Iv tomorrow #. Acute renal failure on Chronic Kidney disease Stage 3, POA and worsening. - avoid nephrotoxic insults Inpatient status. Pain Evaluation: Adequate Pain Control VTE Mechanical Devices: Intermittant Pneumatic CD Resuscitation Status: DNR/DNI:Do Not Resuscitate/Intubate . VTE Mechanical Devices: Intermittant Pneumatic CD Resuscitation Status: DNR/DNI:Do Not Resuscitate/Intubate Jordan Gallegos MD Jul 12, 2016 07:28
[2016-07-12 07:54] VITALS: BP 122/58; O2SAT 97
[2016-07-12 08:29] LABS: Mean Corpuscular Hemoglobin 29.7 pg (27.0-35.0); Mean Corpuscular Volume 91.5 fL (81-100)
[2016-07-12 09:30] VITALS: BP 122/58; O2SAT 97
[2016-07-12] MEDS ORDERED: Glycopyrrolate 0.2 MG/ML 1mL Inj IVPUSH ONE (09:35)
[2016-07-12] MEDS ORDERED: Glycopyrrolate 0.2 MG/ML 1mL Inj IVPUSH PRN (09:40)
[2016-07-12] MEDS ORDERED: LORazepam 2 mg/mL Inj ANXIETY/AGIT IVPUSH PRN (09:40)
[2016-07-12] MEDS ORDERED: fentaNYL 2,500 mCg/250 mL 2,500 MCG in IV Premix 1 EACH IV SCH (09:40)
[2016-07-12] MEDS ORDERED: fentaNYL-PF 50 mCg/mL 2 mL Inj IVPUSH PRN (09:40)
[2016-07-12] MEDS ORDERED: LORazepam 100 mg/100 mL NS 100 MG in IV Premix 100 EACH IV SCH (10:04)
--- NOTE | 2016-07-12 11:32 | NUR ---
Social Work Note: Update Per MD in morning rounds, pt is being extubated on comfort care and likely to pass during this hospitalization. SW to continue to follow should any pt family needs arise. ERIN Hood
--- NOTE | 2016-07-12 12:32 | NUR ---
EXTUBATE TO COMFORT Patient's and son came in this morning, and informed Dr. Gallegos of wishes to extubate patient to comfort care. End of Life orders received, Propofol stopped, and Fentanyl increased to 150 mcg/hr. Brandon Rhdoes, RT present, and patient was extubated at 0930. He began to experience air hunger, no relief from IV push Ativan 2 mg, so Ativan gtt started at 2 mg/hr, and Fentanyl increased to 200 mcg/hr. After approximately 15 minutes, patient's respirations began to decrease, and work of breathing improved. He appeared very comfortable w/ these infusion rates. Patient at 1110, lines/tubes removed. notified, does not have home selected yet. Informed her to call the nursing production supervisor or CCU desk once she has chosen a home. She also asked that any belongings be sent to the [facility]/ the patient. [facility] notified of , he is not a candidate for donation. Security called, and patient/belongings all transported to [facility]/ appropriate paperwork, and paperwork faxed to nursing office.
--- NOTE | 2016-07-12 12:39 | PCM.DC.MED ---
Discharge Summary Date of Service Jul 12, 2016 Dates of Hospitalization Date of Hospital Admission Jul 06, 2016 at 21:06 Date of Discharge: Jul 12, 2016 Providers: Admitting Physician: Marcus Prather MD Primary Care Physician: Ke Mayen DO Attending Physician: Marcus Prather MD Diagnosis at Time of Discharge Diagnosis at Time of Discharge #. Patient on July 12 at 11:10 AM. Primary cause is acute hypoxic respiratory failure secondary to aspiration of blood and aspiration pneumonia #. Acute hematemesis due to Upper GI bleeding. #. Massive acute blood loss anemia. #. Acute respiratory failure, hypoxic #. Aspiration pneumonia #. Acute renal failure #. Mild hypernatremia #. 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 Diabetes Type 2 #. Hypothyroidism #. Chronic Kidney disease Stage 3 Consultations Gen. surgery, Dr. Prather and Dr. Peñaloza. Pulmonary critical care, Dr. Mayer Procedures XRay, CTs & MRIs X-RAY CHEST ONE VIEW, PORTABLE 07/06/16 IMPRESSION: Moderate to large left-sided pleural effusion and associated atelectasis. Superimposed infection cannot be excluded. Dictated by: Jaquan Buchanan M.D. on 07/06/2016 at 15:07 Approved by: Jaquan Buchanan M.D. on 07/06/2016 at 15:16 Cardiac Echo Impression Interpretation Summary The left ventricle is normal in size. Left ventricular wall thickness is mildly increased. The ejection fraction is estimated to be 50-55%. The right ventricle is not well visualized. There is mild to moderate mitral regurgitation. There is trace aortic regurgitation. The right ventricular systolic pressure is estimated at 35 mmHg assuming a right atrial pressure of 15 mm Hg. There is no pericardial effusion. There is a moderately large left-sided pleural effusion. The patient was in atrial fibrillation with heart rates between 65-88 bpm during the exam. Compared to the previous study on 06/12/2015, the atrial fibrillation is new, LV systolic function is not as brisk, the degee of mitral regurgitation is higher and the pleural effusion is new. Invasive Procedures Splenic artery embolization. Successful. See procedure notes for details of all listed procedures. Upper endoscopy, unable to visualized initially due to blood Second upper endoscopy, notable for ulceration with visible vessel on tumor. No active bleed required. Endotracheal intubation mechanical ventilation. Central line placement. 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 The patient is vomiting alberto red blood. He also has some epigastric abdominal pain and nausea associated with this episode. Family called 911. He had a similar episode last year. He was given 2 units of blood last week due to chronic anemia felt to be related to chronic bleeding from his cancer. He is not on any blood thinners. Oncology also discussed Iron transfusions on the next visit Medics report the patient was hypotensive with a blood pressure in the 90's systolic and tachycardic with a heart rate in the 130's. He was given a small amount of IVF en route. Patient was evaluated by my collegue Dr Gallegos, Dr Justice (GI) and Dr Prather ( Surgery). EGD was done emergently but due to persistent bleeding it was difficult to locate the site of bleeding. 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 Acute hematemesis due to Upper GI bleeding. Present on admission. Appears resolved. This appears to remain stable after splenic artery embolization. has stated that she wants no secondary massive transfusion protocol ordered if he has another acute catastrophic hemorrhage. She is open to 1 or 2 units of blood at a time. No further bleeding, recheck hematocrit. #. Massive acute blood loss anemia. Present on admission, stable with hct 34 after 14 units PRBC. As above #. Acute respiratory failure, hypoxic The patient is essentially not able to wean down from 60% oxygen and PEEP of 5. He did have some issues with a dysfunctioning Peep valve yesterday. He is maintaining saturations of 99% today. No change in current management. The patient relates on to improve any meaningful way. I talked to the about compassionate extubation possibly today. I am waiting to hear back from her. #. Aspiration pneumonia, POA. We will continue empiric Zosyn. The patient also did have a significant blood aspiration event. No change in current management. #. Acute renal failure on Chronic Kidney disease Stage 3, POA and stable. His management today will continue to be 1/2 normal saline at 100 - avoid nephrotoxic insults check creatinine today. #. Mild hypernatremia, new and improved. We will continue half normal saline today. We did stop Plasma-Lyte. Decrease rate to 50 miles per hour. #. Aggressive GIST of the stomach, POA and stable. non operable and on chemotherapy that may be failing. Dr Sullivan following - Oncology will be consulted in the morning. Plan as above. #. Cool right leg, resolved.. Duplex ultrasound reveals normal arterial flow. This is improved. Patient has a normal ultrasound of the right arterial system of the leg. We will continue to follow clinically. #. Diabetes Type 2, POA and stable. - medium Lispro correction algorithm, no change to clinical approach at this point. This is stable. #. Hypothyroidism, POA and stable. - concert Synthroid to Iv tomorrow #. Acute renal failure on Chronic Kidney disease Stage 3, POA and worsening. - avoid nephrotoxic insults Hospital course: She presented with gross hematemesis. He required 14 units of blood on the massive transfusion protocol. The patient was taken for endoscopy on the day of admit and only blood and clots were visualized. There is then taken to radiology for splenic artery embolization which appeared to be successful and stopped bleeding. The patient was intubated for procedures and developed evidence of acute aspiration pneumonia and probable aspiration of blood products. He required sedation and unfortunately in his oxygen requirements over the next several days. The patient had a second endoscopy indicating that the tumor itself was ulcerated. This is a GI ST tumor. There are visible vessel suggesting a high risk for rebleeding. The patient was seen by surgery multiple times. They felt that he was unstable and that surgical resection was not an option. In addition the patient has been seen for possible surgical repair section Of [place] in the past and had been declined for resection due to very poor prognosis associated with the proposed procedure. Ultimately was felt that further efforts were futile and lower care discussions ensued with the . Ultimately on the morning of expiration she agreed withdrawing all further efforts and a compassionate extubation was performed. The patient was maintained on comfort care with a fentanyl drip and Ativan drip. . Exam Vital Signs (Last) Date Time Temp Pulse Resp B/P Pulse Ox O2 Delivery O2 Flow Rate FiO2 07/12/16 09:30 69 122/58 97 60 07/12/16 07:17 36.5 18 Mechanical Ventilator 07/06/16 18:09 2 Exam Patient is intubated and sedated. Expiration he was being "difficulty Heart was regular. Global edema. Test 07/06/16 15:40 07/06/16 16:30 07/06/16 21:10 07/06/16 22:49 Troponin T 0.036ug/L (0.0-0.011) Hold Purple Top Tube Received (Received) Activated Partial Thromboplast Time 26.6sec (22.8-33.0) Fibrinogen 237mg/dL (157-380) Hold Blue Top Tube Received (Received) Magnesium Level 1.7mg/dL (1.6-2.6) Hold [place] Top Tube Received (Received) Urine Color Yellow (YELLOW) Urine Appearance Clear (CLEAR,HAZY) Urine pH 5.5 (5.0-8.0) Urine Specific [place] 1.010 (1.003-1.035) Urine Protein Negativemg/dL (NEG,TRACE) Urine Glucose (UA) Negativemg/dL (NEGATIVE) Urine Ketones Negativemg/dL (NEGATIVE) Urine Occult Blood Trace (NEGATIVE) Urine Nitrite Negative (NEGATIVE) Urine Bilirubin Negative (NEGATIVE) Urine Urobilinogen Normalmg/dL (NORMAL) Urine Leukocyte Esterase Trace (NEGATIVE) Urine RBC 0-2/hpf (0-2) Urine WBC 6-10/hpf (0-5) Urine Epithelial Cells Occasional/hpf (NONE-MOD) Urine Crystals None seen (NONE SEEN) Urine Bacteria Few/hpf (NONE-FEW) Urine Hyaline Casts None/lpf (NONE) Urine Granular Casts None seen (NONE SEEN) Urine Waxy Casts None seen (NONE SEEN) Urine Red Blood Cell Casts None seen (NONE SEEN) Urine White Blood Cell Casts None seen (NONE SEEN) Urine Mucus None seen (None Seen) Urine Trichomonas None seen (NONE SEEN) Urine Yeast None (NONE SEEN) Urinalysis Comment None Urine Culture Reflexed Indicated Test 07/07/16 03:00 07/07/16 06:00 07/07/16 11:55 07/10/16 06:00 Neutrophils (%) (Auto) 76.7% (40-74) Lymphocytes (%) (Auto) 10.1% (14-46) Monocytes (%) (Auto) 12.5% (4-12) Eosinophils (%) (Auto) 0.1% (0-5) Basophils (%) (Auto) 0.2% (0-3) Lactic Acid Level 0.9mmol/L (0.4-2.0) Prothrombin Time 10.9sec (8.1-12.5) Prothromb Time International Ratio 1.02ratio Prealbumin 8mg/dL (20-40) Test 07/12/16 08:00 White Blood Count 21.2th/mm3 (3.8-10.1) Red Blood Count 3.53mil/mm3 (4.40-5.80) Hemoglobin 10.5g/dL (13.8-17.2) Hematocrit 32.3% (41.0-50.0) Mean Corpuscular Volume 91.5fL (81-100) Mean Corpuscular Hemoglobin 29.7pg (27.0-35.0) Mean Corpuscular Hemoglobin Concent 32.5% (32.0-37.0) Red Cell Distribution Width 16.6% (12.3-15.4) Platelet Count 332bil/L (150-400) Sodium Level 142mEq/L (134-144) Potassium Level 4.2mEq/L (3.5-5.2) Chloride Level 105mEq/L (97-108) Carbon Dioxide Level 21mmol/L (18-29) Blood Urea Nitrogen 48mg/dL (8-27) Creatinine 1.46mg/dL (0.76-1.27) Estimat Glomerular Filtration Rate 50mL/min (>59) Glucose Level 207mg/dL (60-99) Calcium Level 8.6mg/dL (8.5-10.1) Total Bilirubin 0.6mg/dL (0.0-1.2) Aspartate Amino Transf (AST/SGOT) 13U/L (0-50) Alanine Aminotransferase (ALT/SGPT) 7U/L (0-44) Alkaline Phosphatase 115U/L (25-160) Total Protein 5.7g/dL (6.4-8.4) Albumin 1.9g/dL (3.4-5.0) Microbiology Results 1 sputum culture positive for MSSA Discharge Medications Discharge Medications Cholecalciferol (Vitamin D3) (Vitamin D3) 2,000 Unit Tablet 2,000 UNIT PO QAM ( Reported) Citalopram (Citalopram) 20 Mg Tablet 40 MG PO QAM (Reported) Cyanocobalamin/Folic Acid (Vitamin V64-[place] Acid Tablet) 1 Each Tablet 1 EACH PO QAM (Reported) Cyclobenzaprine (Cyclobenzaprine) 10 Mg Tablet 10 MG PO BID (Reported) Ferrous Sulfate (Ferrous Sulfate) 325 Mg Tablet.dr 325 MG PO BIDWM (Reported) Fluticasone Propionate (Fluticasone Propionate) 50 Mcg/Actuation [place].susp 2 SPRAYS NS QAM (Reported) Furosemide (Furosemide) 40 Mg Tablet 80 MG PO BIDWM (Reported) Gabapentin (Gabapentin) 300 Mg Capsule 300 MG PO TID (Reported) Insulin Glargine (Lantus U100 Insulin Vial) 100 Unit/Ml Vial 50 UNIT SUBQ HS ( Reported) Levothyroxine (Levoxyl) 200 Mcg Tablet 200 MCG PO QAM (Reported) [place]-3/Dha/Epa/Fish Oil (Fish Oil 1,000 mg Softgel) 1 Each Capsule 1 EACH PO QAM (Reported) Omeprazole (Omeprazole) 20 Mg Capsule.dr 20 MG PO BIDWM (Reported) Oxybutynin Chloride (Oxybutynin Chloride) 5 Mg Tablet 5 MG PO BID (Reported) Prazosin (Prazosin) 5 Mg Capsule 5 MG PO BID (Reported) Simvastatin (Simvastatin) 40 Mg Tablet 40 MG PO HS (Reported) Sitagliptin Phos (Januvia) 100 Mg Tablet 100 MG PO QAM (Reported) Sunitinib Malate (Sutent) 50 Mg Capsule 50 MG PO DAILY (Reported) HOLD (07/02/16) As needed Hydrocodone-Acetaminophen 7.5-325 mg (Hydrocodone-Acetaminophen 7.5-325 mg) 1 Each Tablet 1 TABLET PO BID PRN PRN For Pain (Reported) Insulin Human Lispro (HumaLOG U100 Insulin Vial) 100 Unit/Ml Unit 1-12 UNIT SUBQ TIDWM PRN PRN Hyperglycemia (Reported) Check blood sugars before meals and at bedtime. Use correction factor only before meals. Blood Sugar Lispro Correction: <151, 0 units; 151-175, 1 unit; 176-200, 2 units; 201-225, 3 units; 226-250, 4 units; 251-275, 5 units; 276-300 , 6 units; 301-325, 7 units; 326-350, 8 units; 351-375, 9 units; 376-400, 10 units; >400, 12 units. Followup Plan Disposition: Time spent 60 minutes Jordan Gallegos MD Jul 12, 2016 12:39
== END 2016-07-12 11:10 | disposition expired | DRG 987 ==
LOC: SED 15:32 → EDBD 15:32 → EDUNIT# 15:32 → ORA 16:57 → CCU 21:06
PROVIDERS: ADMIT Surgery; ATTEND Hospitalist
PROC: 5A1955Z Respiratory Ventilation, Greater than 96 Consecutive Hours (ICD-10-PCS; 2016-07-06)
PROC: 4A033R1 Measurement of Arterial Saturation, Peripheral, Percutaneous Approach (ICD-10-PCS; 2016-07-06)
PROC: 3E1G88Z Irrigation of Upper GI using Irrigating Substance, Via Natural or Artificial Opening Endoscopic (ICD-10-PCS; 2016-07-06)
PROC: 0DJ08ZZ Inspection of Upper Intestinal Tract, Via Natural or Artificial Opening Endoscopic (ICD-10-PCS; 2016-07-06)
PROC: B4101ZZ Fluoroscopy of Abdominal Aorta using Low Osmolar Contrast (ICD-10-PCS; 2016-07-06)
PROC: B4131ZZ Fluoroscopy of Splenic Arteries using Low Osmolar Contrast (ICD-10-PCS; 2016-07-06)
PROC: 30233K1 Transfusion of Nonautologous Frozen Plasma into Peripheral Vein, Percutaneous Approach (ICD-10-PCS; 2016-07-06)
PROC: 30233N1 Transfusion of Nonautologous Red Blood Cells into Peripheral Vein, Percutaneous Approach (ICD-10-PCS; 2016-07-06)
PROC: 30233R1 Transfusion of Nonautologous Platelets into Peripheral Vein, Percutaneous Approach (ICD-10-PCS; 2016-07-06)
PROC: 04L43DZ Occlusion of Splenic Artery with Intraluminal Device, Percutaneous Approach (ICD-10-PCS; principal; 2016-07-06 17:00)
PROC: 0DJ08ZZ Inspection of Upper Intestinal Tract, Via Natural or Artificial Opening Endoscopic (ICD-10-PCS; 2016-07-08)
DX: C49.A2 Gastrointestinal stromal tumor of stomach (principal); J96.01 Acute respiratory failure with hypoxia; N17.0 Acute kidney failure with tubular necrosis; J69.0 Pneumonitis due to inhalation of food and vomit; Z68.42 Body mass index [BMI] 45.0-49.9, adult; I50.30 Unspecified diastolic (congestive) heart failure; N17.9 Acute kidney failure, unspecified; D62 Acute posthemorrhagic anemia; R57.1 Hypovolemic shock; E66.01 Morbid (severe) obesity due to excess calories; E11.9 Type 2 diabetes mellitus without complications; Z79.4 Long term (current) use of insulin; E03.9 Hypothyroidism, unspecified; I12.9 Hypertensive chronic kidney disease with stage 1 through stage 4 chronic kidney disease, or unspecified chronic kidney disease; N18.3 Chronic kidney disease, stage 3 (moderate); Z66 Do not resuscitate